=== PATIENT | male | born 1960 | race Caucasian/White ===

== ENCOUNTER 2024-05-01 15:00 | Outpatient (RCR) | payer OTHER, SELFPAY ==
[2024-01-04 09:44] VITALS: PULSE 76
== END 2024-05-01 23:59 | disposition home or self-care (01) ==
LOC: ANHCPREHAB 15:00
PROVIDERS: PCP Internal Medicine; Visit Provider Internal Medicine
DX: J44.9 Chronic obstructive pulmonary disease, unspecified (principal)
CPT/HCPCS: 94625

== ENCOUNTER 2024-08-04 08:39 | Outpatient (CLI) | payer OTHER, SELFPAY ==
--- OUTSIDE RECORDS SUMMARY | 2024-08-04 08:43 | XMS_ITS | Referral Summary ---
Author Organization [facility] Medical Office Building [address] Address [address] [place] [address] Care Team Providers Care Group Leader [employer] Name Role Phone Be Sheehan MD Primary Care Provider + [phone] Kwame Quezada MD Unavailable [phone] Encounters Date Type Department Care Team Description 07/18/2024 Orders Only [facility] Medical Group Pulmonology [address] [place] [address] [place] [phone] Kwame Quezada MD 07/17/2024 Results Follow-Up [facility] Pulmonology [address] [place] [address] [place] [phone] Kwame Quezada MD 07/14/2024 6:47 PM CDT - 07/14/2024 10:05 PM CDT Emergency [facility] Emergency Department [address] [place] [address] COVID (Primary Dx) Discharge Disposition: Discharge to home or self care 07/03/2024 Results Follow-Up [facility] Pulmonology [address] [place] [address] [place] [phone] Kwame Quezada MD 06/29/2024 6:08 PM LITERACY EDUCATION PROFESSOR - 06/29/2024 9:03 PM LITERACY EDUCATION PROFESSOR Emergency [facility] Emergency Department [address] [place] [address] COPD with acute exacerbation (HCC) (Primary Dx); Laryngitis, acute; Acute bronchospasm; Influenza A Discharge Disposition: Discharge to home or self care 06/20/2024 Results Follow-Up [facility] Medical [facility] at [address] [place] [phone] Hue Posey NP 06/19/2024 2:55 PM LITERACY EDUCATION PROFESSOR - 06/19/2024 11:59 PM LITERACY EDUCATION PROFESSOR Hospital Encounter [address] [address] Cough, unspecified type Discharge Disposition: Discharge to home or self care 06/19/2024 2:45 PM LITERACY EDUCATION PROFESSOR Office Visit [facility] Medical [facility] at [address] [place] [phone] Lauren Preciado NP Cough, unspecified type (Primary Dx) 06/19/2024 Telephone [facility] Pulmonology [address] [place] [address] [place] [phone] Kwame Quezada MD Cough (Left voicemail, Cough) 06/15/2024 Telephone [facility] Pulmonology [address] [place] [address] [place] [phone] Kwame Quezada MD Diagnostic Testing (Left voicemail, Testing) 06/09/2024 Orders Only [facility] Pulmonology [address] [place] [address] [place] [phone] ProviderHari MD from Last 3 Months Allergies No known active allergies Medications omeprazole (PriLOSEC) 40 mg capsule Take 1 capsule (40 mg total) by mouth daily Active loratadine/pseudo ephedrine (CLARITIN-D 12 HOUR ORAL) Take by mouth Activ e coenzyme Q10 200 mg capsule Take 1 capsule (200 mg total) by mouth daily Active TURMERIC ORAL Take 1 tablet by mouth daily Active rizatriptan HEALTH AND WELLNESS COORDINATOR (MAXALT-HEALTH AND WELLNESS COORDINATOR) 10 mg disintegrating tabletIndications :Migraine Take 1 tablet (10 mg total) by mouth every 2 (two) hours as needed for migraine May repeat in 2 hours if unresolved. Do not exceed 30 mg in 24 hours. 9 tablet 3 024 Active rosuvastatin (CRESTOR) 10 mg tablet Take 1 tablet (10 mg total) by mouth daily 90 tablet 3 024 Active aspirin 81 mg enteric coated tablet Take 1 tablet (81 mg total) by mouth daily 30 tablet 11 024 Active metoprolol tartrate (LOPRESSOR) 25 mg immediate release tablet Take 0.5 tablets (12.5 mg total) by mouth 2 (two) times a day 90 tablet 3 024 2024 Active fluticasone propionate (FLONASE) 50 mcg/actuation nasal sprayIndications: LLOYD (dyspnea on exertion) Administer 2 sprays into each nostril daily 16 g Active tamsulosin (FLOMAX) 0.4 mg extended release capsule TAKE 1 CAPSULE ORAL ROUTE ONCE DAILY 1/2 HOUR FOLLOWING THE SAME MEAL EACH DAY Active oxyCODONE-acetami nophen (PERCOCET) 5-325 mg per tablet Active ondansetron (ZOFRAN) 4 mg tablet Active albuterol HFA (PROVENTIL HFA,VENTOLIN HFA,PROAIR HFA) 90 mcg/actuation inhaler Inhale 2 puffs every 6 (six) hours as needed for shortness of breath or wheezing for wheezing 8.5 g 11 024 Active fluticasone-umecl idin-vilanter (Trelegy Ellipta) 100-62.5-25 mcg inhaler Inhale 1 puff daily 3 each 11 Active topiramate (TOPAMAX) 50 mg tabletIndications :Chronic migraine w/o aura w/o status migrainosus, not intractable TAKE 1 TABLET BY MOUTH TWICE DAILY 60 tablet 5 024 Active guaiFENesin ER (MUCINEX) 600 mg 12 hr tablet Take 1 tablet (600 mg total) by mouth 2 (two) times a day for 5 days 10 tablet 025 Active azithromycin (Zithromax Z-Derick) 250 mg tabletIndications :COPD with acute exacerbation (HCC) Take 1 tablet (250 mg total) by mouth daily Take first 2 tablets together, then 1 every day until finished. 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),Acute bronchospasm Take 20 mL (400 mg total) by mouth 4 (four) times a day as needed for cough or congestion Collaborating physician Inder Ba MD 240 mL 1 025 Active losartan-hydroCHL OROthiazide (HYZAAR) 100-12.5 mg per tabletIndications :Primary hypertension Take 1 tablet by mouth daily 90 tablet 1 025 Active losartan-hydroCHL OROthiazide (HYZAAR) 100-12.5 mg per tabletIndications :Primary hypertension Take 1 tablet by mouth daily 30 tablet 2 024 2024 Discontinued predniSONE (DELTASONE) 50 mg tablet Take 1 tablet (50 mg) by mouth daily for 5 days 5 tablet 025 2024 nirmatrelvir 300 mg-ritonavir 100 mg (PAXLOVID 300mg-100 mg) tablets,dose pack tablets in a dose pack Take 300 mg nirmatrelvir (2 x 150 mg tablets) with 100 mg ritonavir (1 x 100 mg tablet) with all three tablets taken together by mouth twice daily for 5 days. 30 tablet 025 2024 Active Problems Problem Noted Date Diagnosed Date Laryngitis, acute 06/29/2024 Acute bronchospasm 06/29/2024 Influenza A 06/29/2024 Right renal stone 02/15/2024 Assessment & Plan (02/15/2024 5:30 PM CDT): Will a [facility] Emergency room because of renal stone CT scan confirmed renal stone right kidney this was 1st episode. Comfortable at this time he is on tamsulosin no further treatment indicated. Patient had no obstruction/meaning hydronephrosis laboratory studies were cleaned with respect to any renal failure. CT scan did pickle processor a lung nodule patient is under care of his physical therapy nurse for management of this. Left shoulder pain 02/15/2024 Assessment & Plan (02/15/2024 5:33 PM CDT): Bones. The left she will remind him a what he had several years ago with the right shoulder. He has pain on range of motion laterally he has full range of motion.. This time I am referring this patient to Orthopedics for further management of this progressive symptoms that have been going on for several months.. No lab or x- ray on today's visit. Pulmonary nodule, right 02/15/2024 Assessment & Plan (02/15/2024 5:40 PM CDT): Incidental pulmonary nodule found while being evaluated for abdominal and chest pain secondary to renal stone. This diagnosis being managed by his physical therapy nurse Angina pectoris, unspecified 08/12/2023 Abnormal stress test 07/13/2023 LLOYD (dyspnea on exertion) 06/21/2023 Assessment & Plan (06/21/2023 3:58 PM LITERACY EDUCATION PROFESSOR): LLOYD with chest tightness in setting of 63 y/o male with htn and hyperlipidemia thus needs stress test to rule out cad. Rising PSA level 06/21/2023 Assessment & Plan (06/21/2023 6:18 PM LITERACY EDUCATION PROFESSOR): Check PSA before next visit. Palpitations 06/21/2023 Assessment & Plan (06/21/2023 6:18 PM LITERACY EDUCATION PROFESSOR): CardioNet monitor and call back for results. Chronic migraine w/o aura w/ o status migrainosus, not intractable 12/14/2022 Overview (02/02/2023): Sumatriptan produced elevated blood pressures in the 180s over 109 range Assessment & Plan (02/15/2024 5:18 PM CDT): Patient advised me that Topamax has been very very effective in controlling his migraine rarely has used sumatriptan. Assessment & Plan (06/21/2023 6:18 PM LITERACY EDUCATION PROFESSOR): Follow-up with his neurologist as they direct. Assessment & Plan (03/03/2023 7:48 PM CDT): Trial of sumatriptan and call back if no improvement or develops side effects. Assessment & Plan (02/02/2023 9:09 AM CDT): Discontinue sumatriptan for ineffectiveness and causing elevated blood pressures. Trial Nurtec ODT and samples provided. Call back for prescription. Discussed potential side effects and call back if any develop. May use prophylactically as well if needed. Neurological referral. CT head unremarkable. Chronic pain of both knees 06/19/2022 Assessment & Plan (07/06/2022 2:44 PM LITERACY EDUCATION PROFESSOR): X-rays of both knees followed by Fionan gel as needed and physical therapy evaluation. Call back for orthopedic referral if no improvement Umbilical hernia 12/26/2021 Assessment & Plan (02/24/2022 9:05 AM CDT): Continue light duty for another 4 weeks. Patient can wear binder for comfort. Continue bowel regimen to avoid straining. Okay to return to work if has light duty. Patient will call with any further questions or concerns. Assessment & Plan (01/15/2022 9:02 AM CDT): We will set the patient up for umbilical hernia repair with mesh implantation. We have discussed postoperative restrictions. He is in understanding of the plan. Until surgery continue abdominal binder for comfort. Continue bowel regimen to avoid straining. We have gone over signs and symptoms of incarceration and he will call sooner if anything changes Assessment & Plan (01/11/2022 11:10 PM CDT): Recommend observation and surgical referral if enlarges or becomes symptomatic. Warning signs of strangulation discussed which would prompt an ER visit Type 2 diabetes mellitus with hyperlipidemia 04/2021 Assessment & Plan (02/15/2024 5:31 PM CDT): Patient's HgbA1c was 6.1 lipid profile was very good he understands at this point he needs no medications Lifestyle changes.. Assessment & Plan (12/20/2023 5:16 PM CDT): New diagnosis for him. Reduce sugars and carbs and increase exercise for weight loss. Check A1c and microalbumin creatinine ratio before next visit. A1c currently well controlled. LDL above goal and will increase rosuvastatin next visit if needed. Yearly diabetic eye exam recommended. Patient informs me today that he will be establishing with a new primary care physician closer to home. He knows he is due for physical June 2024. Assessment & Plan (06/21/2023 6:18 PM LITERACY EDUCATION PROFESSOR): Patient should reduce sugar and carbs, increase exercise, maintain proper body weight, and will check an A1c once or twice yearly. Assessment & Plan (03/03/2023 7:47 PM CDT): Patient should reduce sugar and carbs, increase exercise, maintain proper body weight, and will check an A1c once or twice yearly. Assessment & Plan (07/06/2022 2:43 PM LITERACY EDUCATION PROFESSOR): Patient should reduce sugar and carbs, increase exercise, maintain proper body weight, and will check an A1c once or twice yearly. Assessment & Plan (01/01/2022 7:35 AM CDT): Patient should reduce sugar and carbs, increase exercise, maintain proper body weight, and will check an A1c once or twice yearly. Assessment & Plan (06/17/2021 3:35 PM LITERACY EDUCATION PROFESSOR): Proximity to diabetes discussed. Decrease sugars increase exercise and repeat A1c and fasting blood sugar before next visit. Assessment & Plan (11/11/2020 3:13 PM CDT): Patient should reduce sugar and carbs, increase exercise, maintain proper body weight, and will check an A1c once or twice yearly. GERD (gastroesophageal reflux disease) Beck esophagus 05/31/2020 Overview (12/16/2021): Due for EGD 10/25, dr Peters Assessment & Plan (12/20/2023 5:13 PM CDT): Continue PPI and repeat EGD October 2024 Assessment & Plan (06/21/2023 6:15 PM LITERACY EDUCATION PROFESSOR): Continue PPI and repeat EGD October 2024 Assessment & Plan (07/06/2022 2:44 PM LITERACY EDUCATION PROFESSOR): Continue PPI and repeat EGD October 2024. Assessment & Plan (01/01/2022 7:36 AM CDT): Continue PPI and due for EGD October 2024. Assessment & Plan (06/17/2021 3:34 PM LITERACY EDUCATION PROFESSOR): Continue his PPI and follow-up for EGD as directed. Assessment & Plan (11/11/2020 3:13 PM CDT): Continues omeprazole and check magnesium level before next visit. EGD due May 2021. 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 Currently due May 2021. He should call if he does not have complete symptom resolution of acid reflux. COPD with acute exacerbation 05/31/2020 Assessment & Plan (12/20/2023 5:13 PM CDT): Continue Trelegy daily and use albuterol as needed and follow up with his physical therapy nurse as they direct. Assessment & Plan (06/21/2023 6:15 PM LITERACY EDUCATION PROFESSOR): Continue Trelegy and use albuterol as needed. Assessment & Plan (03/16/2023 10:52 AM LITERACY EDUCATION PROFESSOR): Much better today and should continue Trelegy indefinitely and use albuterol as needed and slowly reduce its usage. Finish prednisone taper and call back if symptoms would redevelop. Assessment & Plan (03/08/2023 5:18 PM LITERACY EDUCATION PROFESSOR): Change Symbicort to Trelegy. Azithromycin and prednisone taper. Albuterol 6 times daily. Chest x-ray today and call back for results. ER if develops more shortness of breath. Repeat visit in 1 week or sooner if needed. Seamus Lynne for coughing. Hoarseness likely result of his coughing and laryngeal irritation. Vocal Rest recommended. Assessment & Plan (07/06/2022 2:43 PM LITERACY EDUCATION PROFESSOR): Stable on Symbicort and use albuterol as needed. Assessment & Plan (01/01/2022 7:35 AM CDT): Stable on Symbicort and use albuterol as needed. Assessment & Plan (06/17/2021 3:34 PM LITERACY EDUCATION PROFESSOR): Well controlled on Symbicort and use albuterol as needed. Assessment & Plan (11/11/2020 3:13 PM CDT): Continue his Symbicort twice daily and use albuterol as needed. Assessment & Plan (07/23/2020 8:38 PM CDT): Well controlled on his Symbicort and use albuterol p.r.n. Assessment & Plan (05/31/2020 5:59 PM LITERACY EDUCATION PROFESSOR): Stable and should Continue Symbicort. Change to Trelegy if needed in future. ED (erectile dysfunction) 05/31/2020 Assessment & Plan (05/31/2020 6:00 PM LITERACY EDUCATION PROFESSOR): Stable. Check testosterone and prolactin level before next visit. Trial of Viagra and side effects discussed. Healthcare maintenance 05/31/2020 Assessment & Plan (06/21/2023 6:17 PM LITERACY EDUCATION PROFESSOR): Flu shot each January. Tetanus booster due May 31, 2030. Consider new COVID booster, RSV, Shingrix, flu shot. Colonoscopy due January 2025. PSA yearly. Assessment & Plan (07/06/2022 2:43 PM LITERACY EDUCATION PROFESSOR): Flu shot each January. Tetanus booster every 10 years. COVID booster completed. Shingrix recommended. PSA yearly. Colonoscopy due 2024. Will see him back in 6 months with lab sooner if needed. Assessment & Plan (06/17/2021 3:35 PM LITERACY EDUCATION PROFESSOR): Flu shot each January. Tetanus booster every 10 years. COVID vaccine completed. Shingrix recommended. PSA yearly. Colonoscopy due 2024. Will see him back in 6 months with lab sooner if needed. Assessment & Plan (05/31/2020 6:01 PM LITERACY EDUCATION PROFESSOR): Flu Shot each January. Tetanus booster updated. Pneumovax updated. Shingrix recommended. COVID vaccine when available. PSA yearly. Colonoscopy due January 2025. Will see him back in 1 month for lab and blood pressure evaluation sooner if needed. Allergic rhinitis 09/20/2019 Assessment & Plan (05/31/2020 6:01 PM LITERACY EDUCATION PROFESSOR): Pedro deleon Hypertension 09/20/2019 Assessment & Plan (02/15/2024 5:20 PM CDT): Hypertension at goal 112/70 patient remains on Hyzaar 100/12.5 mg once daily Assessment & Plan (12/20/2023 5:13 PM CDT): Blood pressure well controlled on losartan, hydrochlorothiazide, metoprolol Assessment & Plan (06/21/2023 6:15 PM LITERACY EDUCATION PROFESSOR): Blood pressure well controlled on losartan hydrochlorothiazide. Assessment & Plan (05/06/2023 2:27 PM LITERACY EDUCATION PROFESSOR): Recommend DASH diet, heart-healthy lifestyle, exercise. Discussed the risks of hypertension. Assessment & Plan (03/08/2023 5:17 PM LITERACY EDUCATION PROFESSOR): Let us discontinue the lisinopril and case it is contributing to his coughing. Replace with losartan. Continue Hydrochlorothiazide Assessment & Plan (03/03/2023 7:47 PM CDT): Blood pressure well controlled on lisinopril hydrochlorothiazide Assessment & Plan (02/16/2023 1:00 PM CDT): Recommend DASH diet, heart-healthy lifestyle, exercise. Discussed the risks of hypertension. Assessment & Plan (02/02/2023 9:08 AM CDT): Blood pressure appears very well controlled at home on lisinopril hydrochlorothiazide and seems to have elevated after developing the headache and using sumatriptan. Assessment & Plan (07/06/2022 2:44 PM LITERACY EDUCATION PROFESSOR): Blood pressure well controlled on lisinopril hydrochlorothiazide. Assessment & Plan (01/11/2022 11:10 PM CDT): Well controlled on the current regimen. Avoidance of salt, proper body weight, and routine exercise recommended. Assessment & Plan (01/01/2022 7:36 AM CDT): Well controlled on the current regimen. Avoidance of salt, proper body weight, and routine exercise recommended. Assessment & Plan (06/17/2021 3:34 PM LITERACY EDUCATION PROFESSOR): Well controlled on the current regimen. Avoidance of salt, proper body weight, and routine exercise recommended. Assessment & Plan (11/11/2020 3:13 PM CDT): Well controlled on the current regimen. Avoidance of salt, proper body weight, and routine exercise recommended. Assessment & Plan (07/23/2020 8:38 PM CDT): Well controlled on the current regimen. Avoidance of salt, proper body weight, and routine exercise recommended. Assessment & Plan (05/31/2020 5:59 PM LITERACY EDUCATION PROFESSOR): Not well controlled and will change to lisinopril hydrochlorothiazide 02/11.5 1 tablet daily and warned of side effects. Check metabolic panel couple weeks and see him back in the office in 4 weeks. Call back if blood pressures do not improve. Hypercholesterolemia 09/20/2019 Assessment & Plan (12/20/2023 5:13 PM CDT): LDL above goal on his rosuvastatin but admits to missing doses prior to last lab work. Increase exercise and work on diet and take rosuvastatin on regular basis. If LDL not better by next visit, recommend increasing rosuvastatin dosage. Assessment & Plan (06/21/2023 6:18 PM LITERACY EDUCATION PROFESSOR): Well controlled on current therapy and will check a lipid panel and LFTs in 6 months. Assessment & Plan (03/03/2023 7:47 PM CDT): Well controlled on current therapy and will check a lipid panel and LFTs in 6 months. Assessment & Plan (07/06/2022 2:43 PM LITERACY EDUCATION PROFESSOR): Well controlled on current therapy and will check a lipid panel and LFTs in 6 months. Assessment & Plan (01/01/2022 7:35 AM CDT): Well controlled on current therapy and will check a lipid panel and LFTs in 6 months. Assessment & Plan (06/17/2021 3:34 PM LITERACY EDUCATION PROFESSOR): Well controlled on current therapy and will check a lipid panel and LFTs in 6 months. Assessment & Plan (11/11/2020 3:13 PM CDT): Well controlled on current therapy and will check a lipid panel and LFTs in 6 months. Assessment & Plan (07/23/2020 8:37 PM CDT): Well controlled on current therapy and will check a lipid panel and LFTs in 4 months. Assessment & Plan (05/31/2020 5:58 PM LITERACY EDUCATION PROFESSOR): Stable and should continue rosuvastatin and check lipids and LFTs before next visit. Resolved Problems Problem Noted Date Diagnosed Date Resolved Date Verruca 03/03/2023 03/03/2023 Assessment & Plan (03/03/2023 7:48 PM CDT): Dermatology referral Sinusitis, acute 02/11/2023 02/16/2023 Assessment & Plan (02/11/2023 2:14 PM CDT): Trial of amoxicillin and call back if no improvement Otitis media 02/11/2023 02/16/2023 Assessment & Plan (02/11/2023 2:14 PM CDT): Trial of amoxicillin along with Ciprodex eardrops and call back if no improvement Skin lesion 12/26/2021 02/16/2023 Assessment & Plan (02/24/2022 9:05 AM CDT): Pathology reviewed as just a simple skin tag nothing concerning. Assessment & Plan (01/15/2022 9:02 AM CDT): We will set the patient up for excision of the skin lesion at the time of the umbilical hernia repair. Assessment & Plan (01/11/2022 11:10 PM CDT): Dermatology referral. Abnormal blood sugar 07/23/2020 022 Assessment & Plan (07/23/2020 8:39 PM CDT): Importance of low carb diet increased exercise discussed. Check fasting blood sugar and A1c before next visit. Immunizations Immunization Administration Dates Next Due Influenza, Trivalent, Preser vative Free, Intramuscular 02/15/2024 Influenza, Unspecified 03/16/2023(Deferr ed: Patient Refused),02/16/2023(Deferred: Patient Refused),12/01/2022(Deferred: Patient Refused),01/31/2021(Deferred: Patient Refused),07/05/2020(Deferred: Patient Refused),05/31/2020(Deferred: Patient Refused) Pfizer SARS-CoV-2 Monovalent Vaccination (12+ Yrs) PURPLE 04/21/2021,08/27/2020,07/30/2020 Pneumococcal Polysaccharide PPV23 05/31/2020 Tdap 05/31/2020 Social History Tobacco Use Types Packs/Day Years Used Date Smoking Tobacco: Former Cigarettes 0.5 12 1 5 - 1986 Tobacco Cessation:Counseling Given: Not Answered Comments:Quit in 1987, Smoked for 13 plus years 1/2 PPD Alcohol Use Standard Drinks/Week Comments Yes 0 (1 standard drink = 0.6 oz pur e alcohol) AUDIT-C Answer Date Recorded Q1: How often do you have a drink containing alcohol? 4 or more times a week 06/21/2023 Q2: How many drinks containi ng alcohol do you have on a typical day when you are drinking? 1 or 2 Q3: How often do you have si x or more drinks on one occasion? Never 06/21/2023 PHQ-2 Answer Date Recorded PHQ-2 Total Score (If total score is 3 or more points, staff should administer the PHQ-9) 0 02/15/2024 Personal Safety Answer Date Recorded Have you ever been in or are you currently in a harmful physical or emotional relationship or is someone making you feel afraid or unsafe? Denies 07/14/2024 Sex and Gender Information Value Date Recorded Sex Assigned at Not on file Legal Sex Male 1:11 PM LITERACY EDUCATION PROFESSOR Gender Identity Not on file Sexual Orientation Not on file Last Filed Vital Signs Vital Sign Reading Time Taken Comments Blood Pressure 124/96 07/14/2024 9:15 PM CDT Pulse 91 07/14/2024 10:00 PM CDT Temperature 36.1 C (97 F) 07/14/2024 2:40 PM CDT Respiratory Rate 19 07/14/2024 10:00 PM CDT Oxygen Saturation 94% 07/14/2024 10:00 PM CDT Inhaled Oxygen Concentration - - Weight 72.6 kg (160 lb) 07/14/2024 2:40 PM CDT Height 170.2 cm (5' 7 ) 06/29/2024 5:52 PM LITERACY EDUCATION PROFESSOR Body Mass Index 25.06 06/29/2024 5:52 PM LITERACY EDUCATION PROFESSOR Plan of Treatment Not on file Medical Devices Implanted Type Area Maori Physiotherapist Device Identifier Shelf Expiration Date Model / Serial / Lot [employer]/C R Bard Ventralex St Sepra Sorbaflex 1.7in [facility] Bioresorbable [id number] - [id number] Implanted:Qty: 1 on 02/13/2022 by Tyshawn Yousif MD at [facility] N/A: Abdomen [employer]/C R Bard [id number] 01/28/2023 [id number] / / [id number] Procedures Procedure Name Priority Date/Time Associated Diagnosis Comments TROPONIN T HIGH-SENSITIVITY 6-HOUR Timed 07/14/2024 8:[address] CHEST WO CONTRAST ED 07/14/2024 7:54 PM CDT INFLUENZA A/B, RSV, AND COVID-19 PCR STAT 07/14/2024 7:12 PM CDT XR CHEST PA LATERAL 2 VIEWS ED 07/14/2024 2:57 PM CDT D-DIMER, QUANTITATIVE STAT 07/14/2024 2:56 PM CDT PRO B-TYPE NATRIURETIC PEPTIDE STAT 07/14/2024 2:56 PM CDT EGFR STAT 07/14/2024 2:56 PM CDT DIFFERENTIAL AUTO STAT 07/14/2024 2:5 6 PM CDT TROPONIN T HIGH-SENSITIVITY SERIES (BASELINE, 2HR, 4HR, 6HR) STAT 07/14/2024 2:56 PM CDT CBC WITH AUTO DIFFERENTIAL STAT 07/14/2024 2:56 PM CDT COMPREHENSIVE METABOLIC PANEL STAT 07/14/2024 2:56 PM CDT ECG 12-LEAD STAT 07/14/2024 2:51 PM CDT EGFR STAT 06/29/2024 7:01 PM LITERACY EDUCATION PROFESSOR DIFFERENTIAL AUTO STAT 06/29/2024 7:0 1 PM LITERACY EDUCATION PROFESSOR TROPONIN T HIGH-SENSITIVITY SERIES (BASELINE, 2HR, 4HR, 6HR) STAT 06/29/2024 7:01 PM LITERACY EDUCATION PROFESSOR COMPREHENSIVE METABOLIC PANEL STAT 06/29/2024 7:01 PM LITERACY EDUCATION PROFESSOR PRO B-TYPE NATRIURETIC PEPTIDE STAT 06/29/2024 7:01 PM LITERACY EDUCATION PROFESSOR CBC WITH AUTO DIFFERENTIAL STAT 06/29/2024 7:01 PM LITERACY EDUCATION PROFESSOR INFLUENZA A/B, RSV, AND COVID-19 PCR STAT 06/29/2024 7:01 PM LITERACY EDUCATION PROFESSOR XR CHEST 1 VIEW ED 06/29/2024 6:46 PM LITERACY EDUCATION PROFESSOR ECG 12-LEAD STAT 06/29/2024 6:44 PM LITERACY EDUCATION PROFESSOR INFLUENZA A/B, RSV, AND COVID-19 PCR Routine 06/19/2024 2:55 PM LITERACY EDUCATION PROFESSOR Cough, unspecified type STRESS TEST, PULMONARY Routine 10:53 AM LITERACY EDUCATION PROFESSOR HEMOGLOBIN A1C Routine 11/30/2023 6:52 AM CDT Benign essential hypertension Hypercholesterolemi a IFG (impaired fasting glucose) LIPID PANEL Routine 11/30/2023 6:52 AM CDT Benign essential hypertension Hypercholesterolemi a IFG (impaired fasting glucose) PSA DIAGNOSTIC Routine 11/30/2023 6:52 AM CDT Benign essential hypertension Hypercholesterolemi a IFG (impaired fasting glucose) Rising PSA level COLONOSCOPY Routine 02/19/2020 from Last 3 Months or Most Recently Relevant to Health Maintenance Results * Troponin T high-sensitivity 6-hour (07/14/2024 8:48 PM CDT) Trop T hs <6 <=22 ng/L Comment: Interpretive Data For further hscTnT resources including the diagnostic algorithm and an aid in interpretation, copy and paste this link: https://nrl.testcatalog.org/show/hsTrop Current Interpretive Data last revised 2020. Trop T hs delta 0 ng/L [facility] ([place]) Trop T hs interp Insignificant [facility] ([place]) Blood 07/14/2024 8:48 PM CDT 07/14/2024 8:55 PM CDT Inder Ba MD LAB BLOOD ORDERABLES Final Result [facility] ([place]) 1 [facility] [place] [address] * CT Chest WO Contrast (07/14/2024 7:54 PM CDT) Anatomical Region Laterality Modality Body N/A Computed Tomogra phy 07/14/2024 8:34 PM CDT Narrative 07/14/2024 8:37 PM CDT EXAM DESCRIPTION: CT CHEST WO CONTRAST REASON FOR STUDY: Respiratory illness, nondiagnostic xray Pt states he has had the flu for about a month and not getting better. Productive cough with shortness of breath since 06/16/24 TECHNIQUE: CT scan of the chest performed without intravenous contrast using helical scanning technique. Reconstructed coronal and sagittal MPR images reviewed. All images stored on PACS. Automated exposure control was used as a dose optimization technique for this examination. COMPARISON: 02/21/2024 FINDINGS: LUNGS: Mild linear atelectasis in the lung bases. Trachea and major airways patent. HEART/MEDIASTINUM/DASIA: Heart size normal. Minimal coronary artery calcification. No enlarged lymph node. Thoracic inlet unremarkable. UPPER ABDOMEN: Unremarkable. MUSCULOSKELETAL: Mild multilevel disc disease. CHEST WALL: Unremarkable. IMPRESSION: No pneumonia or other acute pulmonary process identified. THIS IS AN ELECTRONICALLY VERIFIED FINAL REPORT 07/14/2024 8:37 PM - Electronically signed by Vasile Easley M.D. AR: DINORA Report ID: [id number] Reading Location: [id number] Procedure Note Vasile Easley MD - 07/14/2024 EXAM DESCRIPTION: CT CHEST WO CONTRAST REASON FOR STUDY: Respiratory illness, nondiagnostic xray Pt states he has had the flu for about a month and not getting better. Productive cough with shortness of breath since 06/16/24 TECHNIQUE: CT scan of the chest performed without intravenous contrastusing helical scanning technique. Reconstructed coronal and sagittal MPR images reviewed. All images stored on PACS. Automated exposure control was usedas a dose optimization technique for this examination. COMPARISON: 02/21/2024 FINDINGS: LUNGS: Mild linear atelectasis in the lung bases. Trachea and majorairways patent. HEART/MEDIASTINUM/DASIA: Heart size normal. Minimal coronary artery calcification. No enlarged lymph node. Thoracic inlet unremarkable. UPPER ABDOMEN: Unremarkable. MUSCULOSKELETAL: Mild multilevel disc disease. CHEST WALL: Unremarkable. IMPRESSION: No pneumonia or other acute pulmonary process identified. THIS IS AN ELECTRONICALLY VERIFIED FINAL REPORT 07/14/2024 8:37 PM - Electronically signed by Vasile Easley M.D. AR: DINORA Report ID: [id number] Reading Location: [place] [address] PROCEDURES Final R esult * (ABNORMAL) Influenza A/B, RSV, and COVID-19 PCR Nasopharyngeal (07/14/2024 7:12 PM CDT) COVID-19 RNA Positive(A) Negative Influenza A RNA Negative Negative [facility] ([place] Influenza B RNA Negative Negative [facility] ([place]) RSV RNA Negative Negative [facility] ([place]) Comment: Interpretive data: Testing performed by [facility]. This test is performed using the NoWait Xpert Xpress CoV-2/Flu/RSV plus assay. This is a multiplex, real- time reverse transcriptase PCR assay intended for the qualitative detection of nucleic acid from SARS-CoV-2, influenza A, influenza B, and respiratory syncytial virus. This assay has been cleared by the [place] Food and Drug administration. The performance characteristics have been verified by the [facility]. Results must be considered in the clinical context, and a negative result does not rule out infection. Interpretive Data last revised 2023 Nasopharyngeal 07/14/2024 7: 12 PM CDT 07/14/2024 7:15 PM CDT Narrative [facility] ([place]) - 07/14/2024 8:09 PM CDT Is the Patient experiencing symptoms consistent with COVID?->Yes us Arianne THOMAS LAB MICROBIOLOGY - GENERA L ORDERABLES Final Result [facility] ([place]) 1 [facility] Department [place] [address] * XR Chest PA Lateral 2 Views (07/14/2024 2:57 PM CDT) Anatomical Region Laterality Modality Body, Chest N/A Computed Radiogr aphy 07/14/2024 3:24 PM CDT Narrative 07/14/2024 3:25 PM CDT EXAM DESCRIPTION: XR CHEST PA LATERAL 2 VIEWS REASON FOR STUDY: Shortness of breath c/o productive cough, trouble breathing, fatigue for a few weeks. Tested positive for flu A a 06/29. No fevers. TECHNIQUE: Frontal and lateral radiographic view(s) of the chest. COMPARISON: 06/29/2024. FINDINGS: LUNGS: No focal opacity, pleural effusion, or pneumothorax. Lungs are hyperexpanded with flattened diaphragms. HEART/MEDIASTINUM: Cardiac silhouette normal in size. Mediastinal and hilar contours appear normal. LINES/TUBES: None. BONES: No acute osseous abnormality. IMPRESSION: No acute cardiopulmonary abnormality. THIS IS AN ELECTRONICALLY VERIFIED FINAL REPORT 07/14/2024 3:25 PM - Electronically signed by Klaus Carson M.D. CH: DIPAK Report ID: [id number] Reading Location: [id number] Procedure Note Klaus Carson Jr., MD - 07/14/2024 EXAM DESCRIPTION: XR CHEST PA LATERAL 2 VIEWS REASON FOR STUDY: Shortness of breath c/o productive cough, trouble breathing, fatigue for a few weeks. Tested positive for flu A a 06/29. No fevers. TECHNIQUE: Frontal and lateral radiographic view(s) of the chest. COMPARISON: 06/29/2024. FINDINGS: LUNGS: No focal opacity, pleural effusion, or pneumothorax. Lungs are hyperexpanded with flattened diaphragms. HEART/MEDIASTINUM: Cardiac silhouette normal in size. Mediastinal andhilar contours appear normal. LINES/TUBES: None. BONES: No acute osseous abnormality. IMPRESSION: No acute cardiopulmonary abnormality. THIS IS AN ELECTRONICALLY VERIFIED FINAL REPORT 07/14/2024 3:25 PM - Electronically signed by Klaus Carson M.D. CH: Report ID: [id number] Reading Location: [place] [address] Inder Ba MD IMG XR PROCEDURES Final Res ult * Troponin T high-sensitivity series (baseline, 2hr, 4hr, 6hr) (07/14/2024 2:56 PM CDT) Trop T hs <6 <=22 ng/L Comment: Interpretive Data For further hscTnT resources including the diagnostic algorithm and an aid in interpretation, copy and paste this link: https://nrl.testcatalog.org/show/hsTrop Current Interpretive Data last revised 2020. Blood 07/14/2024 2:56 PM CDT 07/14/2024 2:59 PM CDT Inder Ba MD LAB BLOOD ORDERABLES Final Result [facility] [place] 1 [facility] Department [place] [address] * eGFR (07/14/2024 2:56 PM CDT) eGFR 79 >=60 mL/min/1. 73 m2 Comment: Interpretive Data Reference Interval Normal >/= 90 mL/min/1.73m2 Mildly decreased* 60 - 89 mL/min/1.73m2 Mildly to moderately decreased 45 - 59 mL/min/1.73m2 Moderately to severely decreased 30 - 44 mL/min/1.73m2 Severely decreased 15 - 29 mL/min/1.73m2 Kidney Failure < 15 mL/min/1.73m2 *Relative to young adult level Estimated glomerular filtration rate is determined by the 2020 CKD-EPI equation recommended by the National Kidney Foundation (A Unifying Approach to GFR Estimation: Recommendations of the NKF-ASK Task Force on Reassessing the Inclusion of Race in Diagnosing Kidney Disease, JASN 2020). The CKD-EPI equation should not be used for patients with unstable renal function and has not been validated in children and those over 70. Current interpretive data was last reviewed 2021. Blood 07/14/2024 2:56 PM CDT 07/14/2024 2:59 PM CDT Inder Ba MD LAB BLOOD ORDERABLES Final Result [facility] ([place] 1 [facility] Department [place] [address] * Differential, auto (07/14/2024 2:56 PM CDT) Neutrophil abs 2.7 1.5 - 6.5 K/cumm Imm gran abs 0.0 0.0 - 0.1 K/cumm [facility] ([place]) Lymphocyte abs 1.6 0.8 - 3.3 K/cumm [facility] ([place]) Monocyte abs 0.4 0.2 - 0.8 K/cumm [facility] ([place]) Eosinophil abs 0.1 0.0 - 0.5 K/cumm [facility] ([place]) Basophil abs 0.0 0.0 - 0.1 K/cumm [facility] ([place]) Neutrophil pct 54.7 % [facility] ([place]) Comment: Interpretive Data Percent cell count reference ranges are not reported, since discordance with absolute values may lead to misinterpretation of CBC data. Current Interpretive Data was last revised on 2017. Imm gran pct 0.8 % [facility] ([place]) Comment: Interpretive Data Percent cell count reference ranges are not reported, since discordance with absolute values may lead to misinterpretation of CBC data. Current Interpretive Data was last revised on 2017. Lymphocyte pct 33.7 % [facility] ([place]) Comment: Interpretive Data Percent cell count reference ranges are not reported, since discordance with absolute values may lead to misinterpretation of CBC data. Current Interpretive Data was last revised on 2017. Monocyte pct 8.4 % [facility] ([place]) Comment: Interpretive Data Percent cell count reference ranges are not reported, since discordance with absolute values may lead to misinterpretation of CBC data. Current Interpretive Data was last revised on 2017. Eosinophil pct 1.8 % [facility] ([place]) Comment: Interpretive Data Percent cell count reference ranges are not reported, since discordance with absolute values may lead to misinterpretation of CBC data. Current Interpretive Data was last revised on 2017. Basophil pct 0.6 % [facility] ([place]) Comment: Interpretive Data Percent cell count reference ranges are not reported, since discordance with absolute values may lead to misinterpretation of CBC data. Current Interpretive Data was last revised on 2017. Blood 07/14/2024 2:56 PM CDT 07/14/2024 2:59 PM CDT Inder Ba MD LAB BLOOD ORDERABLES Final Result [facility] ([place]) 1 [facility] Department [place] [address] * Pro B-type natriuretic peptide (07/14/2024 2:56 PM CDT) NT-proBNP <36 <=300 pg/mL Comment: Interpretive Comments: A. Dyspnea in Acute Care Setting All Ages: < 300 pg/ml, acute heart failure unlikely. < 50 yrs: 300 - 450 pg/ml, further investigation warranted. > 450 pg/ml, acute heart failure likely. 50 - 74 yrs: 300 - 900 pg/ml, further investigation warranted. > 900 pg/ml, acute heart failure likely . > or = 75 yrs: 450 - 1800 pg/ml, further investigation warranted. > 1800 pg/ml, acute heart failure likely. B. Non-acute Setting < 75 yrs < 125 pg/ml, rules out heart failure. > or = 125 pg/ml, further investigation warranted. > or = 75 yrs < 450 pg/ml, rules out heart failure. > or = 450 pg/ml, further investigation warranted. - Knowledge of each individual patient's NT-proBNP range may be more useful than using similar cut-points for every patient. Please note that marked elevations in NT-proBNP levels may be observed in state other than Left Ventricular Congestive Failure, including: acute coronary syndromes, right heart strain/failure (including pulmonary embolism and cor pulmonale), critical illness, renal failure, as well as advanced age. - References: 1. Thomas GONZALES et.al. Eur Heart J. 2006:27:330-337. 2. David RW, Bonita JUAN. J. AM Kathy Cardiol: Cardiovasc Imag. 2009;2: 216- 225. Interpretive Data Last Revised Date: 2017. Blood 07/14/2024 2:56 PM CDT 07/14/2024 7:25 PM CDT Arianne THOMAS LAB BLOOD ORDERABLES Araceli camp Result [facility] ([place]) 1 [facility] Department of Laboratories [place], [place] [id number] * CBC with auto differential (07/14/2024 2:56 PM CDT) WBC 4.9 3.8 - 9.9 K/cumm Hgb 15.1 13.0 - 17.5 g/dL [facility] ([place]) Hct 42.4 38.9 - 50.3 % [facility] ([place]) Plt 185 150 - 400 K/cumm [facility] ([place]) MPV 10.1 9.1 - 12.3 fL [facility] RBC 4.88 4.30 - 5.80 M/cumm [facility] ([place]) MCV 86.9 81.3 - 96.4 fL [facility] ([place]) MCH 30.9 27.1 - 33.3 pg [facility] ([place]) MCHC 35.6 32.3 - 35.7 g/dL [facility] ([place]) RDW CV 12.5 11.1 - 14.9 % [facility] ([place]) RDW SD 39.4 35.7 - 48.1 fL [facility] ([place]) NRBC abs 0.00 0.00 - 0.01 K/cumm [facility] ([place]) Blood 07/14/2024 2:56 PM CDT 07/14/2024 2:59 PM CDT us Inder Ba MD LAB BLOOD ORDERABLES Final Result Performing Organization Address [facility] Co de Phone Number [facility] ([place]) 1 [facility] Department [place] [address] * D-dimer, quantitative (07/14/2024 2:56 PM CDT) D-Dimer <215 <=499 ng/mL FEU [facility] ([place]) Comment: Interpretive data FDA approved the D-dimer, in conjunction with a low or moderate pretest probability score, to exclude venous thromboembolic events (VTE) (PE and DVT) in outpatients when the D-dimer result is < 500 ng/ml FEU. Evidence supports using an age-adjusted D-dimer cut-off for outpatients older than 50 (age x 10) to improve specificity without sacrificing sensitivity. Example: age 68, VTE cut-off 680 ng/ml FEU. References; Scharis HT et al. Brit Med J. 2013;346:f2492. Brittany et al. Annals Int Med. 2015;163:701-11. Current interpretive data was last revised on 2019. Blood 07/14/2024 2:56 PM CDT 07/14/2024 7:26 PM CDT us Arianne THOMAS LAB BLOOD ORDERABLES Araceli l Result Performing Organization Address [facility] Co de Phone Number [facility] ([place]) 1 [facility] Department [place] [address] * (ABNORMAL) Comprehensive metabolic panel (07/14/2024 2:56 PM CDT) Sodium 136 135 - 145 mmol/L Potassium, pl 3.4 3.3 - 4.9 mmol/L [facility] ([place]) Chloride 104 97 - 110 mmol/L [facility] ([place]) CO2 21(L) 22 - 32 mmol/L [facility] ([place]) Anion gap 11 2 - 15 mmol/L [facility] ([place]) BUN 14 6 - 25 mg/dL [facility] ([place]) Creatinine 1.05 0.80 - 1.30 mg/dL [facility] ([place]) Glucose 168 70 - 199 mg/dL [facility] ([place]) Comment: Interpretive Data Fasting glucose >/= 126 mg/dl is diagnostic for diabetes. Fasting is defined as no caloric intake for at least 8 hours. Fasting glucose between 100 mg/dl to 125 mg/dl is diagnostic of prediabetes. In a patient with classic symptoms of hyperglycemia or hyperglycemic crisis, a random glucose >/= 200 mg/dl is diagnostic for diabetes. In the absence of unequivocal hyperglycemia, results should be confirmed by repeat testing. The classification and Diagnosis of Diabetes Diabetes Care 2021; 46: S19-S40. Current interpretive data was last revised 2022. Calcium 9.2 8.5 - 10.3 mg/dL [facility] ([place]) Bilirubin, total 0.4 0.1 - 1.2 mg/dL [facility] ([place]) Protein, pl 6.0(L) 6.5 - 8.5 g/dL [facility] ([place]) Albumin 4.1 3.5 - 5.0 g/dL [facility] ([place]) Alk phos 96 40 - 130 Units/L [facility] ([place]) ALT 32 7 - 55 Units/L [facility] ([place]) AST 16 10 - 50 Units/L [facility] ([place]) Blood 07/14/2024 2:56 PM CDT 07/14/2024 2:59 PM CDT Inder Ba MD LAB BLOOD ORDERABLES Final Result [facility] ([place] 1 [facility] [place] [employer] [place] [address] * ECG 12 lead (07/14/2024 2:51 PM CDT) 07/14/2024 2:51 PM CDT Narrative [facility] - 07/14/2024 4:32 PM CDT Vent Rate: 60 bpm RR Interval: 998 msec [place] Interval: 0 msec QRS Duration: 102 msec QT Interval: 388 msec QTC Interval: 388 msec P-R-T [place]: [id number] - 35 - 70 degrees IMPRESSION: Normal sinus rhythm with PACs ABNORMAL RHYTHM ECG NO CHANGE FROM PREVIOUS TRACING NOTED Electronically Signed By: Mohan Melgar MD Inder Ba MD ECG ORDERABLES Final Resul t Performing Organization Address [facility] Co de Phone Number [facility] * Troponin T high-sensitivity series (baseline, 2hr, 4hr, 6hr) (06/29/2024 7:01 PM LITERACY EDUCATION PROFESSOR) Pathologist [facility] Trop T hs 7 <=22 ng/L Comment: Interpretive Data For further hscTnT resources including the diagnostic algorithm and an aid in interpretation, copy and paste this link: https://nrl.testcatalog.org/show/hsTrop Current Interpretive Data last revised 2020. Blood 06/29/2024 7:01 PM LITERACY EDUCATION PROFESSOR 06/29/2024 7:05 PM LITERACY EDUCATION PROFESSOR Carmelo THOMAS LAB BLOOD ORDERABLES Final R esult Performing Organization Address [facility] Co de Phone Number [facility] W[facility] ([place]) 1 [facility] Department [place] [employer] [place] [address] * (ABNORMAL) Influenza A/B, RSV, and COVID-19 PCR Nasopharyngeal (06/29/2024 7:01 PM LITERACY EDUCATION PROFESSOR) COVID-19 RNA Negative Negative Influenza A RNA Positive(A) Negative [facility] ([place]) Influenza B RNA Negative Negative [facility] ([place]) RSV RNA Negative Negative [facility] ([place]) Comment: Interpretive data: Testing performed by [facility]. This test is performed using the NoWait Xpert Xpress CoV-2/Flu/RSV plus assay. This is a multiplex, real- time reverse transcriptase PCR assay intended for the qualitative detection of nucleic acid from SARS-CoV-2, influenza A, influenza B, and respiratory syncytial virus. This assay has been cleared by the [place] Food and Drug administration. The performance characteristics have been verified by the [facility]. Results must be considered in the clinical context, and a negative result does not rule out infection. Interpretive Data last revised 2023 Nasopharyngeal 06/29/2024 7: 01 PM LITERACY EDUCATION PROFESSOR 06/29/2024 7:05 PM LITERACY EDUCATION PROFESSOR Narrative [facility] ([place]) - 06/29/2024 7:50 PM LITERACY EDUCATION PROFESSOR Is the Patient experiencing symptoms consistent with COVID?->Yes us Carmelo THOMAS LAB MICROBIOLOGY - GENERAL O RDERABLES Final Result [facility] ([place]) 1 [facility] Department [place] [address] * eGFR (06/29/2024 7:01 PM LITERACY EDUCATION PROFESSOR) eGFR 80 >=60 mL/min/1. 73 m2 Comment: Interpretive Data Reference Interval Normal >/= 90 mL/min/1.73m2 Mildly decreased* 60 - 89 mL/min/1.73m2 Mildly to moderately decreased 45 - 59 mL/min/1.73m2 Moderately to severely decreased 30 - 44 mL/min/1.73m2 Severely decreased 15 - 29 mL/min/1.73m2 Kidney Failure < 15 mL/min/1.73m2 *Relative to young adult level Estimated glomerular filtration rate is determined by the 2020 CKD-EPI equation recommended by the National Kidney Foundation (A Unifying Approach to GFR Estimation: Recommendations of the NKF-ASK Task Force on Reassessing the Inclusion of Race in Diagnosing Kidney Disease, JASN 2021). The CKD-EPI equation should not be used for patients with unstable renal function and has not been validated in children and those over 70. Current interpretive data was last reviewed 2021. Blood 06/29/2024 7:01 PM LITERACY EDUCATION PROFESSOR 06/29/2024 7:05 PM LITERACY EDUCATION PROFESSOR us Carmelo THOMAS LAB BLOOD ORDERABLES Final R esult [facility] ([place] 1 [facility] Department [place] [address] * Differential, auto (06/29/2024 7:01 PM LITERACY EDUCATION PROFESSOR) Neutrophil abs 4.1 1.5 - 6.5 K/cumm Imm gran abs 0.1 0.0 - 0.1 K/cumm [facility] ([place]) Lymphocyte abs 1.5 0.8 - 3.3 K/cumm [facility] ([place]) Monocyte abs 0.6 0.2 - 0.8 K/cumm [facility] ([place]) Eosinophil abs 0.1 0.0 - 0.5 K/cumm [facility] ([place]) Basophil abs 0.0 0.0 - 0.1 K/cumm [facility] ([place]) Neutrophil pct 64.1 % [facility] ([place]) Comment: Interpretive Data Percent cell count reference ranges are not reported, since discordance with absolute values may lead to misinterpretation of CBC data. Current Interpretive Data was last revised on 2017. Imm gran pct 2.0 % [facility] ([place]) Comment: Interpretive Data Percent cell count reference ranges are not reported, since discordance with absolute values may lead to misinterpretation of CBC data. Current Interpretive Data was last revised on 2017. Lymphocyte pct 22.9 % [facility] ([place]) Comment: Interpretive Data Percent cell count reference ranges are not reported, since discordance with absolute values may lead to misinterpretation of CBC data. Current Interpretive Data was last revised on 2017. Monocyte pct 8.7 % [facility] ([place]) Comment: Interpretive Data Percent cell count reference ranges are not reported, since discordance with absolute values may lead to misinterpretation of CBC data. Current Interpretive Data was last revised on 2017. Eosinophil pct 1.7 % [facility] ([place]) Comment: Interpretive Data Percent cell count reference ranges are not reported, since discordance with absolute values may lead to misinterpretation of CBC data. Current Interpretive Data was last revised on 2017. Basophil pct 0.6 % [facility] ([place]) Comment: Interpretive Data Percent cell count reference ranges are not reported, since discordance with absolute values may lead to misinterpretation of CBC data. Current Interpretive Data was last revised on 2017. Blood 06/29/2024 7:01 PM LITERACY EDUCATION PROFESSOR 06/29/2024 7:05 PM LITERACY EDUCATION PROFESSOR us Carmelo THOMAS LAB BLOOD ORDERABLES Final R esult [facility] ([place]) 1 [facility] [place] [address] * Pro B-type natriuretic peptide (06/29/2024 7:01 PM LITERACY EDUCATION PROFESSOR) NT-proBNP <36 <=300 pg/mL Comment: Interpretive Comments: A. Dyspnea in Acute Care Setting All Ages: < 300 pg/ml, acute heart failure unlikely. < 50 yrs: 300 - 450 pg/ml, further investigation warranted. > 450 pg/ml, acute heart failure likely. 50 - 74 yrs: 300 - 900 pg/ml, further investigation warranted. > 900 pg/ml, acute heart failure likely . > or = 75 yrs: 450 - 1800 pg/ml, further investigation warranted. > 1800 pg/ml, acute heart failure likely. B. Non-acute Setting < 75 yrs < 125 pg/ml, rules out heart failure. > or = 125 pg/ml, further investigation warranted. > or = 75 yrs < 450 pg/ml, rules out heart failure. > or = 450 pg/ml, further investigation warranted. - Knowledge of each individual patient's NT-proBNP range may be more useful than using similar cut-points for every patient. Please note that marked elevations in NT-proBNP levels may be observed in state other than Left Ventricular Congestive Failure, including: acute coronary syndromes, right heart strain/failure (including pulmonary embolism and cor pulmonale), critical illness, renal failure, as well as advanced age. - References: 1. Thomas GONZALES et.al. Eur Heart J. 2006:27:330-337. 2. David RW, Bonita JUAN. J. AM Kathy Cardiol: Cardiovasc Imag. 2009;2: 216- 225. Interpretive Data Last Revised Date: 2017. Blood 06/29/2024 7:01 PM LITERACY EDUCATION PROFESSOR 06/29/2024 7:05 PM LITERACY EDUCATION PROFESSOR Carmelo THOMAS LAB BLOOD ORDERABLES Final R esult [facility] ([place]) 1 [facility] Department [place] [address] * CBC with auto differential (06/29/2024 7:01 PM LITERACY EDUCATION PROFESSOR) WBC 6.5 3.8 - 9.9 K/cumm Hgb 14.6 13.0 - 17.5 g/dL [facility] ([place]) Hct 40.9 38.9 - 50.3 % [facility]) Plt 175 150 - 400 K/cumm [facility] ([place]) MPV 10.0 9.1 - 12.3 fL [facility] ([place]) RBC 4.76 4.30 - 5.80 M/cumm [facility] ([place]) MCV 85.9 81.3 - 96.4 fL [facility] ([place]) MCH 30.7 27.1 - 33.3 pg [facility] ([place]) MCHC 35.7 32.3 - 35.7 g/dL [facility] ([place]) RDW CV 12.5 11.1 - 14.9 % [facility] ([place]) RDW SD 39.4 35.7 - 48.1 fL [facility] ([place]) NRBC abs 0.00 0.00 - 0.01 K/cumm [facility] ([place]) Blood 06/29/2024 7:01 PM LITERACY EDUCATION PROFESSOR 06/29/2024 7:05 PM LITERACY EDUCATION PROFESSOR us Carmelo THOMAS LAB BLOOD ORDERABLES Final R esult [facility] ([place]) 1 [facility] Department [place] [address] * (ABNORMAL) Comprehensive metabolic panel (06/29/2024 7:01 PM LITERACY EDUCATION PROFESSOR) Sodium 135 135 - 145 mmol/L Potassium, pl 3.5 3.3 - 4.9 mmol/L [facility] ([place]) Chloride 102 97 - 110 mmol/L [facility] ([place] CO2 22 22 - 32 mmol/L [facility] ([place]) Anion gap 10 2 - 15 mmol/L [facility] ([place]) BUN 18 6 - 25 mg/dL [facility] ([place]) Creatinine 1.04 0.80 - 1.30 mg/dL [facility] ([place]) Glucose 116 70 - 199 mg/dL [facility] ([place]) Comment: Interpretive Data Fasting glucose >/= 126 mg/dl is diagnostic for diabetes. Fasting is defined as no caloric intake for at least 8 hours. Fasting glucose between 100 mg/dl to 125 mg/dl is diagnostic of prediabetes. In a patient with classic symptoms of hyperglycemia or hyperglycemic crisis, a random glucose >/= 200 mg/dl is diagnostic for diabetes. In the absence of unequivocal hyperglycemia, results should be confirmed by repeat testing. The classification and Diagnosis of Diabetes Diabetes Care 2021; 46: S19-S40. Current interpretive data was last revised 2022. Calcium 9.3 8.5 - 10.3 mg/dL [facility] ([place]) Bilirubin, total 0.5 0.1 - 1.2 mg/dL [facility] ([place]) Protein, pl 6.1(L) 6.5 - 8.5 g/dL [facility] ([place]) Albumin 4.0 3.5 - 5.0 g/dL [facility] ([place]) Alk phos 79 40 - 130 Units/L [facility] ([place]) ALT 37 7 - 55 Units/L [facility] ([place]) AST 24 10 - 50 Units/L [facility] ([place]) Comment: Hemolysis present. Results may be affected. Slightly Hemolyzed Specimen Blood 06/29/2024 7:01 PM LITERACY EDUCATION PROFESSOR 06/29/2024 7:05 PM LITERACY EDUCATION PROFESSOR us Carmelo THOMAS LAB BLOOD ORDERABLES Final R esult [facility] ([place]) 1 [facility] Department [place] [address] * XR Chest 1 Vw (06/29/2024 6:46 PM LITERACY EDUCATION PROFESSOR) Anatomical Region Laterality Modality Body, Chest N/A Computed Radiogr aphy 06/29/2024 7:21 PM LITERACY EDUCATION PROFESSOR Narrative 06/29/2024 7:22 PM LITERACY EDUCATION PROFESSOR EXAM DESCRIPTION: XR CHEST 1 VIEW REASON FOR STUDY: Cough for 1 week. TECHNIQUE: Frontal radiographic view of the chest COMPARISON: Chest radiograph 03/08/2023, CT chest 02/21/2024 FINDINGS: LUNGS/PLEURAE: Discoid atelectasis or scarring in the lung bases. No large pleural effusion. There is no pneumothorax. HEART/MEDIASTINUM: Heart size is normal. Normal mediastinal and hilar contours. HARDWARE/LINES/TUBES: None. BONES: Sclerotic lesion projecting over the right scapula is unchanged and likely a bone island. IMPRESSION: Discoid atelectasis or scarring in the lung bases. THIS IS AN ELECTRONICALLY VERIFIED FINAL REPORT 06/29/2024 7:22 PM - Electronically signed by Jony Hale M.D. LB: NABILA Report ID: [id number] Reading Location: [id number] Procedure Note Jony Hale MD - 06/29/2024 EXAM DESCRIPTION: XR CHEST 1 VIEW REASON FOR STUDY: Cough for 1 week. TECHNIQUE: Frontal radiographic view of the chest COMPARISON: Chest radiograph 03/08/2023, CT chest 02/21/2024 FINDINGS: LUNGS/PLEURAE: Discoid atelectasis or scarring in the lung bases. Nolarge pleural effusion. There is no pneumothorax. HEART/MEDIASTINUM: Heart size is normal. Normal mediastinal and hilar contours. HARDWARE/LINES/TUBES: None. BONES: Sclerotic lesion projecting over the right scapula is unchangedand likely a bone island. IMPRESSION: Discoid atelectasis or scarring in the lung bases. THIS IS AN ELECTRONICALLY VERIFIED FINAL REPORT 06/29/2024 7:22 PM - Electronically signed by Jony Hale M.D. LB: LB Report ID: [id number] Reading Location: [id number] Tico Trinh MD IMG XR PROCEDURES Final Result * ECG 12 lead (06/29/2024 6:44 PM LITERACY EDUCATION PROFESSOR) 06/29/2024 6:44 PM LITERACY EDUCATION PROFESSOR Narrative [facility] - 06/30/2024 6:37 AM LITERACY EDUCATION PROFESSOR Vent Rate: 66 bpm RR Interval: 905 msec [place] Interval: 131 msec QRS Duration: 93 msec QT Interval: 388 msec QTC Interval: 401 msec P-R-T [place]: 63 - 35 - 60 degrees IMPRESSION: SINUS RHYTHM WITH OCCASIONAL SUPRAVENTRICULAR PREMATURE COMPLEXES BORDERLINE ECG Compared to prior EKG, PACs are new Electronically Signed By: Mohan Melgar MD Carmelo THOMAS ECG ORDERABLES Final Result [facility] * (ABNORMAL) Influenza A/B, RSV, and COVID-19 PCR Nasopharyngeal (06/19/2024 2:55 PM LITERACY EDUCATION PROFESSOR) Pathologist [facility] COVID-19 RNA Negative Negative Influenza A RNA Positive(A) Negative [facility] Influenza B RNA Negative Negative [facility] RSV RNA Negative Negative [facility] Comment: Interpretive data: Testing performed by [facility]. This test is performed using the NoWait Xpert Xpress CoV-2/Flu/RSV plus assay. This is a multiplex, real-time reverse transcriptase PCR assay intended for the qualitative detection of nucleic acid from SARS-CoV-2, influenza A, influenza B, and respiratory syncytial virus. This assay has been cleared by the [place] Food and Drug administration. The performance characteristics have been verified by the [facility]. Results must be considered in the clinical context, and a negative result does not rule out infection. Interpretive Data last revised 2023 Nasopharyngeal 06/19/2024 2: 55 PM LITERACY EDUCATION PROFESSOR 06/19/2024 9:26 PM LITERACY EDUCATION PROFESSOR Narrative [facility] - 06/19/2024 10:35 PM LITERACY EDUCATION PROFESSOR Is the Patient experiencing symptoms consistent with COVID?->Yes Lauren Preciado NP LAB MICROBIOLOGY - [facility] ORDERABLES Final Result [facility] [address] [place] [address] CH * Stress test, pulmonary (06/05/2024 10:53 AM LITERACY EDUCATION PROFESSOR) Anatomical Region Laterality Modality Other Historical Provider PFT ORDERABLES Final Res ult * PSA diagnostic (11/30/2023 6:52 AM CDT) PSA-Total 0.40 <=5.40 ng/mL Comment: Interpretive Data AGE SEX REFERENCE INTERVAL 0 minutes-150 years Female None 0 minutes-49 years Male None 50-59 years Male 0-3.90 60-69 years Male 0-5.40 70-79 years Male 0-6.20 80-150 years Male 0-6.20 The [employer]erg[employer] PSA Total assay procedure was used. Results from different manufacturers or methods may not be comparable. Serial testing should be performed using the same method. Current interpretive data last revised 21. Blood 11/30/2023 6:52 AM CDT 11/30/2023 8:33 AM CDT Narrative [facility] ([place]) - 11/30/2023 9:09 AM CDT fasting Gordon Melton MD LAB BLOOD ORDERABLES Final R esult Performing Organization Address [facility]/ZIP Co de Phone Number [facility] ([place]) 1 [facility] [place] [address] * (ABNORMAL) Hemoglobin A1c (11/30/2023 6:52 AM CDT) Hgb A1C 6.2(H) 4.0 - 5.6 % Estimated Average Glucose 131 mg/dL [facility] ([place]) Comment: The ADA recommends reporting an estimated Average Glucose (eAG) with all Hemoglobin A1c results using the equation derived from a study of 507 normal and diabetic adults. Minority populations were underrepresented and children were not included. (Diabetes Care 31:0050-6105, 2008). The eAG is not equivalent to a fasting glucose. Blood 11/30/2023 6:52 AM CDT 11/30/2023 8:33 AM CDT Narrative [facility] ([place]) - 11/30/2023 8:54 AM CDT fasting us Gordon Melton MD LAB BLOOD ORDERABLES Final R esult Performing Organization Address [facility] Co de Phone Number [facility] ([place]) 1 [facility] [place] [place] [address] * (ABNORMAL) Lipid panel (11/30/2023 6:52 AM CDT) Cholesterol 181 30 - 199 mg/dL Comment: Interpretive Data Ages < or = 19 years Acceptable: <170 mg/dL Borderline high: 170-199 mg/dL High: >or= 200 mg/dL Ages > or = 20 years Desirable: <200 mg/dL Borderline high: 200-239 mg/dL High: >or= 240 mg/dL Literature References: 1. Expert Panel on Integrated Guidelines for Cardiovascular Health and Risk Reduction in Children and Adolescents. Pediatrics 2011;128:S213 2. NCEP Expert Panel. Circulation 2004;110:227 Current Interpretive Data was last revised on 2017. Triglycerides 151(H) <=149 mg/dL [facility] ([place]) Comment: Interpretive Data Ages < or = 9 years Acceptable: <75 mg/dL Borderline high: 75-99 mg/dL High: >or= 100 mg/dL Ages 10 to 20 years Acceptable: <90 mg/dL Borderline high: 90-129 mg/dL High: >or= 130 mg/dL Ages > or = 20 years Desirable: <150 mg/dL Borderline high: 150-199 mg/dL High: 200-499 mg/dL Very high: >or= 499 mg/dL Literature References: 1. Expert Panel on Integrated Guidelines for Cardiovascular Health and Risk Reduction in Children and Adolescents. Pediatrics 2011;128:S213 2. NCEP Expert Panel. Circulation 2004;110:227 Current Interpretive Data was last revised on 2017. HDL 40 >=40 mg/dL [facility] ([place]) Comment: Interpretive Data Ages < or = 19 years Acceptable: >45 mg/dL Borderline low: 40-45 mg/dL Low: <40 mg/dL Ages > or = 20 years Desirable: >or= 60 mg/dL Low: <40 mg/dL Literature References: 1. Expert Panel on Integrated Guidelines for Cardiovascular Health and Risk Reduction in Children and Adolescents. Pediatrics 2011;128:S213 2. NCEP Expert Panel. Circulation 2004;110:227 Current Interpretive Data was last revised on 2017. LDL, calculated 111 <=129 mg/dL [facility] ([place]) Comment: Interpretive Data Ages < or = 19 years Acceptable: <110 mg/dL Borderline high: 110-129 mg/dL High: >or= 130 mg/dL Ages > or = 20 years Optimal: <100 mg/dL Near optimal: 100-129 mg/dL Borderline high: 130-159 mg/dL High: >160 mg/dL Literature References: 1. Expert Panel on Integrated Guidelines for Cardiovascular Health and Risk Reduction in Children and Adolescents. Pediatrics 2011;128:S213 2. NCEP Expert Panel. Circulation 2004;110:227 Current Interpretive Data was last revised on 2017. Non-HDL Cholesterol 141 mg/dL [facility] ([place]) Comment: Interpretive Data Ages < or = 19 years Acceptable: <120 mg/dL Borderline high: 120-144 mg/dL High: >145 mg/dL Ages > or = 20 years When triglycerides are >200 mg/dL, Non-HDL cholesterol is a secondary target of therapy with treatment goals that are 30 mg/dL greater than the LDL cholesterol target. Literature References: 1. Expert Panel on Integrated Guidelines for Cardiovascular Health and Risk Reduction in Children and Adolescents. Pediatrics 2011;128:S213 2. NCEP Expert Panel. Circulation 2004;110:227 Current Interpretive Data was last revised on 2017. Chol/HDL ratio 5 BRADY Tripp [facility] ([place]) Blood 11/30/2023 6:52 AM CDT 11/30/2023 8:33 AM CDT Narrative [facility] ([place]) - 11/30/2023 9:09 AM CDT fasting Gordon Melton MD LAB BLOOD ORDERABLES Final R esult [facility] ([place]) 1 [facility] Department [place] [address] * Colonoscopy (02/19/2020) Anatomical Region Laterality Modality Other Historical Provider ENDOSCOPY PROCEDURES Araceli l Result from Last 3 Months or Most Recently Relevant to Health Maintenance Additional Health Concerns Infection Onset Date Last Indicated COVID: Recovered Comment:Added based on recent COVID infection. 07/24/2024 025 Insurance [facility] CHOICE PLUS Advance Directives For more information, please contact: [phone] Documents on File Type Date Recorded Patient Urologic Surgeon Expl anation ADVANCE DIRECTIVE 07/23/2023 2:01 PM Power of Billiard Table Mechanic-Medical * Full Code (Latest Code Status on File) Date Activated Date Inactivated Comments 07/26/2023 2:10 PM 07/27/2023 11:20 AM Care Teams Group Leader [employer] Testing Relationship Specialty Start Date End Date Be Sheehan MD [address] [place] [id number] PCP - General Internal Medicine 02/14/24 Kwame Quezada MD [address] [place] [id number] Consulting Physician Pulmonary Disease 06/19/24
--- OUTSIDE RECORDS SUMMARY | 2024-08-04 08:43 | XMS_ITS | Encounter Summary ---
Author Organization [facility] Healthcare Address [address] [place] [address] Care Team Providers Care Cotton Ball Machine Tender Name Role Phone Be Sheehan MD Primary Care Provider [phone] Kwame Quezada MD Unavailable [phone] Encounter Details Date Type Department Care Team (Late st Contact Info) Description 07/03/2024 Results Follow-Up [facility] Medical Group Pulmonology [address] [facility] [address] [place] [address] Kwame Quezada MD [address] [facility] [address] [place] [address] Social History Tobacco Use Types Packs/Day Years Used Date Smoking Tobacco: Former Cigarettes 0.5 12 1 975 - 1987 Comments:Quit in 1987, Smoke d for 13 plus years 1/2 PPD Alcohol [...] making you feel afraid or unsafe? Denies 06/29/2024 Sex and Gender Information Value Date Recorded Sex Assigned at Not on file Legal Sex Male 1:11 PM CONSULTANT INTERN Gender Identity Not on file Sexual Orientation Not on file documented as of this encounter Miscellaneous Notes * Result Encounter Note - Kwame Quezada MD - 07/03/2024 8:26 AM CONSULTANT INTERN Patient tested positive for influenza on 06/19 initially. Test can remain positive for several days. ULTANT INTERN documented in this encounter Plan of Treatment Not on file documented as of this encounter Visit Diagnoses Not on filedocumented in this encounter Additional Health Concerns Infection Onset Date Last Indicated Resolved Time Influenza, adult 06/29/2024 06/29/2024 07/06/2024 3:05 AM CONSULTANT INTERN COVID: Suspected 07/14/2024 07/14/2024 07/14/2024 8:09 PM CDT COVID19 07/14/2024 07/14/2024 07/24/2024 3:05 AM CDT COVID: Recovered Comment:Added based on recent COVID infection. 07/24/2024 07/25/2024 documented as of this encounter Care Teams Cotton Ball Machine Tender Relationship Specialty Start Date End Date Be Sheehan MD [address] [place] [address] PCP - General Internal Medicine 02/14/24 Kwame Quezada MD [address] [facility] [address] [facility] [address] [place] [address] Consulting Physician Pulmonary Disease 06/19/24 documented as of this encounter
--- OUTSIDE RECORDS SUMMARY | 2024-08-04 08:43 | XMS_ITS | Clinical Summary ---
Author Organization [facility] Medical Office Building B Address [address] [place] [address] Care Team Providers Care Body Shop Supervisor Name Role Phone Be Sheehan MD Primary Care Provider [phone] Kwame Quezada MD Unavailable [phone] Allergies No known active allergies Medications omeprazole (PriLOSEC) 40 mg capsule Take 1 capsule (40 mg total) by mouth daily Active loratadine/pseudo ephedrine (CLARITIN-D 12 HOUR ORAL) Take by mouth Activ e coenzyme Q10 200 mg capsule Take 1 capsule (200 mg total) by mouth daily Active TURMERIC ORAL Take 1 tablet by mouth daily Active rizatriptan PUBLIC RELATIONS INTERN (MAXALT-PUBLIC RELATIONS INTERN) 10 mg disintegrating tabletIndications :Migraine Take 1 [...] total) by mouth daily 30 tablet 11 Active metoprolol tartrate (LOPRESSOR) 25 mg immediate release tablet Take 0.5 tablets (12.5 mg total) by mouth 2 (two) times a day 90 tablet 3 024 2024 Active fluticasone propionate (FLONASE) 50 mcg/actuation nasal sprayIndications: LLOYD (dyspnea on exertion) Administer 2 sprays into each nostril daily 16 g 11 Active tamsulosin (FLOMAX) 0.4 mg extended release [...] or wheezing for wheezing 8.5 g 11 Active fluticasone-umecl idin-vilanter (Trelegy Ellipta) 100-62.5-25 mcg [...] 025 Active guaiFENesin (ROBITUSSIN) syrup 100 mg/5 mLIndications: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 Comfortable at this time he is on tamsulosin no further treatment indicated. Patient had no obstruction/meaning hydronephrosis laboratory studies were cleaned with respect to any renal failure. 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 Left shoulder pain [...] stone. This diagnosis being managed by his folder stitcher operator Angina pectoris, unspecified 08/12/2023 Abnormal stress test 07/13/2023 LLOYD (dyspnea on exertion) 06/21/2023 Assessment & Plan (06/21/2023 3:58 PM ELECTRIC TRANSFER OPERATOR): LLOYD with chest tightness in setting of 63 y/o male with htn and hyperlipidemia thus needs stress test to rule out cad. Rising PSA level 06/21/2023 Assessment & Plan (06/21/2023 6:18 PM ELECTRIC TRANSFER OPERATOR): Check PSA before next visit. Palpitations 06/21/2023 Assessment & Plan (06/21/2023 6:18 PM ELECTRIC TRANSFER OPERATOR): CardioNet monitor and call back for results. Chronic migraine w/o aura w/ o status migrainosus, not intractable 12/14/2022 Overview (02/02/2023): Sumatriptan produced elevated blood pressures in the 180s over 109 range Assessment & Plan (02/15/2024 5:18 PM CDT): Patient advised me that Topamax has been very very effective in controlling his migraine rarely has used sumatriptan. Assessment & Plan (06/21/2023 6:18 PM ELECTRIC TRANSFER OPERATOR): Follow-up with his neurologist as they direct. [...] 06/19/2022 Assessment & Plan (07/06/2022 2:44 PM ELECTRIC TRANSFER OPERATOR): X-rays of both knees followed by Ger sarah as needed and physical therapy evaluation. Call [...] 2024. Assessment & Plan (06/21/2023 6:18 PM ELECTRIC TRANSFER OPERATOR): Patient should reduce sugar and carbs, increase exercise, maintain proper body weight, and will check an A1c once or twice yearly. Assessment & Plan (03/03/2023 7:47 PM CDT): Patient should reduce sugar and carbs, increase exercise, maintain proper body weight, and will check an A1c once or twice yearly. Assessment & Plan (07/06/2022 2:43 PM ELECTRIC TRANSFER OPERATOR): Patient should reduce sugar and carbs, increase exercise, maintain proper body weight, and will check an A1c once or twice yearly. Assessment & Plan (01/01/2022 7:35 AM CDT): Patient should reduce sugar and carbs, increase exercise, maintain proper body weight, and will check an A1c once or twice yearly. Assessment & Plan (06/17/2021 3:35 PM ELECTRIC TRANSFER OPERATOR): Proximity to diabetes discussed. Decrease sugars increase [...] 2024 Assessment & Plan (06/21/2023 6:15 PM ELECTRIC TRANSFER OPERATOR): Continue PPI and repeat EGD October 2024 Assessment & Plan (07/06/2022 2:44 PM ELECTRIC TRANSFER OPERATOR): Continue PPI and repeat EGD October 2024. Assessment & Plan (01/01/2022 7:36 AM CDT): Continue PPI and due for EGD October 2024. Assessment & Plan (06/17/2021 3:34 PM ELECTRIC TRANSFER OPERATOR): Continue his PPI and follow-up for EGD as directed. Assessment & Plan (11/11/2020 3:13 PM CDT): Continues omeprazole and check magnesium level before next visit. EGD due May 2021. Assessment & Plan (05/31/2020 5:59 PM ELECTRIC TRANSFER OPERATOR): Stable and should continue his omeprazole and follow-up with his acoustic warfare analyst for repeat EGD as he directs. Currently due May 2021. He should call if he does not have complete symptom resolution of acid reflux. COPD with acute exacerbation 05/31/2020 Assessment & Plan (12/20/2023 5:13 PM CDT): Continue Trelegy daily and use albuterol as needed and follow up with his folder stitcher operator as they direct. Assessment & Plan (06/21/2023 6:15 PM ELECTRIC TRANSFER OPERATOR): Continue Trelegy and use albuterol as needed. Assessment & Plan (03/16/2023 10:52 AM ELECTRIC TRANSFER OPERATOR): Much better today and should continue Trelegy indefinitely and use albuterol as needed and slowly reduce its usage. Finish prednisone taper and call back if symptoms would redevelop. Assessment & Plan (03/08/2023 5:18 PM ELECTRIC TRANSFER OPERATOR): Change Symbicort to Trelegy. Azithromycin and prednisone taper. Albuterol 6 times daily. Chest x-ray today and call back for results. ER if develops more shortness of breath. Repeat visit in 1 week or sooner if needed. Seamus Lynne for coughing. Hoarseness likely result of his coughing and laryngeal irritation. Vocal Rest recommended. Assessment & Plan (07/06/2022 2:43 PM ELECTRIC TRANSFER OPERATOR): Stable on Symbicort and use albuterol as needed. Assessment & Plan (01/01/2022 7:35 AM CDT): Stable on Symbicort and use albuterol as needed. Assessment & Plan (06/17/2021 3:34 PM ELECTRIC TRANSFER OPERATOR): Well controlled on Symbicort and use albuterol as needed. Assessment & Plan (11/11/2020 3:13 PM CDT): Continue his Symbicort twice daily and use albuterol as needed. Assessment & Plan (07/23/2020 8:38 PM CDT): Well controlled on his Symbicort and use albuterol p.r.n. Assessment & Plan (05/31/2020 5:59 PM ELECTRIC TRANSFER OPERATOR): Stable and should Continue Symbicort. Change to Trelegy if needed in future. ED (erectile dysfunction) 05/31/2020 Assessment & Plan (05/31/2020 6:00 PM ELECTRIC TRANSFER OPERATOR): Stable. Check testosterone and prolactin level before next visit. Trial of Viagra and side effects discussed. Healthcare maintenance 05/31/2020 Assessment & Plan (06/21/2023 6:17 PM ELECTRIC TRANSFER OPERATOR): Flu shot each January. Tetanus booster due May 31, 2030. Consider new COVID booster, RSV, Shingrix, flu shot. Colonoscopy due January 2025. PSA yearly. Assessment & Plan (07/06/2022 2:43 PM ELECTRIC TRANSFER OPERATOR): Flu shot each January. Tetanus booster every 10 years. COVID booster completed. Shingrix recommended. PSA yearly. Colonoscopy due 2024. Will see him back in 6 months with lab sooner if needed. Assessment & Plan (06/17/2021 3:35 PM ELECTRIC TRANSFER OPERATOR): Flu shot each January. Tetanus booster every 10 years. COVID vaccine completed. Shingrix recommended. PSA yearly. Colonoscopy due 2024. Will see him back in 6 months with lab sooner if needed. Assessment & Plan (05/31/2020 6:01 PM ELECTRIC TRANSFER OPERATOR): Flu Shot each January. Tetanus booster updated. Pneumovax updated. Shingrix recommended. COVID vaccine when available. PSA yearly. Colonoscopy due January 2025. Will see him back in 1 month for lab and blood pressure evaluation sooner if needed. Allergic rhinitis 09/20/2019 Assessment & Plan (05/31/2020 6:01 PM ELECTRIC TRANSFER OPERATOR): Pedro p.r.n. Hypertension 09/20/2019 Assessment & Plan (02/15/2024 5:20 PM CDT): Hypertension at goal 112/70 patient remains on Hyzaar 100/12.5 mg once daily Assessment & Plan (12/20/2023 5:13 PM CDT): Blood pressure well controlled on losartan, hydrochlorothiazide, metoprolol Assessment & Plan (06/21/2023 6:15 PM ELECTRIC TRANSFER OPERATOR): Blood pressure well controlled on losartan hydrochlorothiazide. Assessment & Plan (05/06/2023 2:27 PM ELECTRIC TRANSFER OPERATOR): Recommend DASH diet, heart-healthy lifestyle, exercise. Discussed the risks of hypertension. Assessment & Plan (03/08/2023 5:17 PM ELECTRIC TRANSFER OPERATOR): Let us discontinue the lisinopril and case [...] sumatriptan. Assessment & Plan (07/06/2022 2:44 PM ELECTRIC TRANSFER OPERATOR): Blood pressure well controlled on lisinopril hydrochlorothiazide. Assessment & Plan (01/11/2022 11:10 PM CDT): Well controlled on the current regimen. Avoidance of salt, proper body weight, and routine exercise recommended. Assessment & Plan (01/01/2022 7:36 AM CDT): Well controlled on the current regimen. Avoidance of salt, proper body weight, and routine exercise recommended. Assessment & Plan (06/17/2021 3:34 PM ELECTRIC TRANSFER OPERATOR): Well controlled on the current regimen. Avoidance [...] recommended. Assessment & Plan (05/31/2020 5:59 PM ELECTRIC TRANSFER OPERATOR): Not well controlled and will change to [...] dosage. Assessment & Plan (06/21/2023 6:18 PM ELECTRIC TRANSFER OPERATOR): Well controlled on current therapy and will check a lipid panel and LFTs in 6 months. Assessment & Plan (03/03/2023 7:47 PM CDT): Well controlled on current therapy and will check a lipid panel and LFTs in 6 months. Assessment & Plan (07/06/2022 2:43 PM ELECTRIC TRANSFER OPERATOR): Well controlled on current therapy and will check a lipid panel and LFTs in 6 months. Assessment & Plan (01/01/2022 7:35 AM CDT): Well controlled on current therapy and will check a lipid panel and LFTs in 6 months. Assessment & Plan (06/17/2021 3:34 PM ELECTRIC TRANSFER OPERATOR): Well controlled on current therapy and will [...] months. Assessment & Plan (05/31/2020 5:58 PM ELECTRIC TRANSFER OPERATOR): Stable and should continue rosuvastatin and check [...] blood sugar and A1c before next visit. Encounters Date Type Department Care Team Description 07/18/2024 Orders Only [facility] Medical Group Pulmonology [address] [place] [phone] Kwame Quezada MD 07/17/2024 Results Follow-Up [facility] Pulmonology [address] [place] [phone] Kwame Quezada MD 07/14/2024 6:47 PM CDT - 07/14/2024 10:05 PM CDT Emergency [facility] Emergency Department [address] [place] [address] COVID (Primary Dx) Discharge Disposition: Discharge to home or self care 07/03/2024 Results Follow-Up [facility] Pulmonology [address] [place] [phone] Kwame Quezada MD 06/29/2024 6:08 PM ELECTRIC TRANSFER OPERATOR - 06/29/2024 9:03 PM ELECTRIC TRANSFER OPERATOR Emergency [facility] Emergency Department [address] [place] [address] COPD with acute exacerbation (HCC) (Primary Dx); Laryngitis, acute; Acute bronchospasm; Influenza A Discharge Disposition: Discharge to home or self care 06/20/2024 Results Follow-Up [facility] at [address] [place] [address] Hue Posey NP 06/19/2024 2:55 PM ELECTRIC TRANSFER OPERATOR - 06/19/2024 11:59 PM ELECTRIC TRANSFER OPERATOR Hospital Encounter [address] [address] Cough, unspecified type Discharge Disposition: Discharge to home or self care 06/19/2024 2:45 PM ELECTRIC TRANSFER OPERATOR Office Visit [facility] at [address] [place] [phone] Lauren Preciado NP Cough, unspecified type (Primary Dx) 06/19/2024 Telephone [facility] Medical [facility] Pulmonology [facility] [facility] [address] [place] [address] Kwame Quezada MD Cough (Left voicemail, Cough) 06/15/2024 Telephone [facility] Medical [facility] Pulmonology [address] [facility] [address] [place] [address] Kwame Quezada MD Diagnostic Testing (Left voicemail, Testing) 06/09/2024 Orders Only [facility] Medical [facility] Pulmonology [facility] [address] [place] [phone] Provider, MD Hari from Last 3 Months Immunizations Immunization Administration Dates Next Due Influenza, Trivalent, Preser vative Free, Intramuscular 02/15/2024 Influenza, Unspecified 03/16/2023(Deferr ed: Patient Refused),02/16/2023(Deferred: Patient Refused),12/01/2022(Deferred: Patient Refused),01/31/2021(Deferred: Patient Refused),07/05/2020(Deferred: Patient Refused),05/31/2020(Deferred: Patient Refused) Pfizer SARS-CoV-2 Monovalent Vaccination (12+ Yrs) PURPLE 04/21/2021,08/27/2020,07/30/2020 Pneumococcal Polysaccharide PPV23 05/31/2020 Tdap 05/31/2020 Surgical History Surgery Date Site/Laterality Comments SHOULDER SURGERY Right EAR SURGERY Right HERNIA REPAIR SINUS SURGERY EYE SURGERY 10/02/2019 - 10/31/2019 Right EYE SURGERY 09/25/2021 Right Cyst removal CATARACT EXTRACTION 01/06/2022 Right CATARACT EXTRACTION 01/13/2022 Left CARDIAC CATHETERIZATION 08/26/2023 Medical History Medical History Date Comments Hypertension Hypercholesteremia Lung disease GERD (gastroesophageal reflux disease) Family History Medical History Relation Name Comments Cancer Other Heart disease Other Lung disease Other Relation Name Status Comments Father Mother Other Social History Tobacco Use Types Packs/Day Years Used Date Smoking Tobacco: Former Cigarettes 0.5 12 1 975 - 1986 Tobacco Cessation:Counseling Given: Not Answered Comments:Quit in 1987, Smoked for 13 plus years 12 PPD Alcohol Use Standard Drinks/Week Comments Yes [...] on file Legal Sex Male 1:11 PM ELECTRIC TRANSFER OPERATOR Gender Identity Not on file Sexual Orientation Not on file Obstetrics History Last Filed Vital Signs Vital Sign Reading [...] cm (5' 7 ) 06/29/2024 5:52 PM ELECTRIC TRANSFER OPERATOR Body Mass Index 25.06 06/29/2024 5:52 PM ELECTRIC TRANSFER OPERATOR Plan of Treatment Health Maintenance Due Date Last Done Comments Albumin Creatinine Ratio, Urine 1959 Dilated Eye Exam 1959 Hepatitis B Screening 1977 Zoster Vaccine (1 of 2) 2009 Pneumococcal vaccine 65+ (2 of 2 - PCV) 05/31/2021 05/31/2020 Covid-19 Vaccine (2023-2 5 season) 2024 04/21/2021, 08/27/2020, 07/30/2020 Abdominal Aortic Aneurysm (A AA) Screen 02/24/2024 Hemoglobin A1C 06/01/2024 11/30/2023, 11/2023, 12/07/2022, Additional history exists Well Visit 65+ 06/21/2024 06/21/2023, 06/03, 06/17/2021, Additional history exists Fall Risk Assessment 07/25/2024 07/26/2023, 06/21/2023, 05/06/2023, Additional history exists Lipid Panel 11/29/2024 11/30/2023, 11/2023, 12/07/2022, Additional history exists Prostate Cancer Screening-PSA 11/29/2024, 06/09/2023, 06/12/2022, Additional history exists Foot Exam 12/19/2024 12/20/2023 Depression Screening 02/14/2025 02/15/2024, 06/21/2023, 05/06/2023, Additional history exists Colon Cancer Screening-Colonoscopy 02/18/2025 02/19/2020 eGFR 07/14/2025 07/14/2024, 06/04, 11/30/2023, Additional history exists DTaP/Tdap/Td Vaccine (2 - Td or Tdap) 05/31/2030 05/31/2020 Colon Cancer Screening-CT Colonography Discontinued 02/19/2020 Colon Cancer Screening-DNA Stool Discontinued 10/19/20 20 Colon Cancer Screening-FIT Discontinued 02/19/2020 Colon Cancer Screening-Sigmoidoscopy Discontinued 02/19/2020 Influenza Vaccine Completed 02/15/2024 Hepatitis C Screening Discontinued Medical Devices Implanted Type Area Gas Station Manager Device Identifier Shelf Expiration Date Model / Serial / Lot [employer]/C R Bard Ventralex St Sepra Sorbaflex 1.7in [place] Open Bioresorbable [id number] - [id number] Implanted:Qty: 1 on 02/13/2022 by Tyshawn Yousif MD at [facility] N/A: Abdomen [employer]/C R Bard [id number] 01/28/2023 [id number] / / [id number] Procedures Procedure Name Priority Date/Time Associated Diagnosis [...] PM CDT EGFR STAT 06/29/2024 7:01 PM ELECTRIC TRANSFER OPERATOR DIFFERENTIAL AUTO STAT 06/29/2024 7:0 1 PM ELECTRIC TRANSFER OPERATOR TROPONIN T HIGH-SENSITIVITY SERIES (BASELINE, 2HR, 4HR, 6HR) STAT 06/29/2024 7:01 PM ELECTRIC TRANSFER OPERATOR COMPREHENSIVE METABOLIC PANEL STAT 06/29/2024 7:01 PM ELECTRIC TRANSFER OPERATOR PRO B-TYPE NATRIURETIC PEPTIDE STAT 06/29/2024 7:01 PM ELECTRIC TRANSFER OPERATOR CBC WITH AUTO DIFFERENTIAL STAT 06/29/2024 7:01 PM ELECTRIC TRANSFER OPERATOR INFLUENZA A/B, RSV, AND COVID-19 PCR STAT 06/29/2024 7:01 PM ELECTRIC TRANSFER OPERATOR XR CHEST 1 VIEW ED 06/29/2024 6:46 PM ELECTRIC TRANSFER OPERATOR ECG 12-LEAD STAT 06/29/2024 6:44 PM ELECTRIC TRANSFER OPERATOR INFLUENZA A/B, RSV, AND COVID-19 PCR Routine 06/19/2024 2:55 PM ELECTRIC TRANSFER OPERATOR Cough, unspecified type STRESS TEST, PULMONARY Routine 10:53 AM ELECTRIC TRANSFER OPERATOR HEMOGLOBIN A1C Routine 11/30/2023 6:52 AM CDT [...] MD LAB BLOOD ORDERABLES Final Result [facility] ([place]) [address] [facility] Department [place] [address] * CT Chest WO Contrast (07/14/2024 7:54 [...] Vasile Easley M.D. AR: DINORA Report ID: [id number] Reading Location: [id number] Procedure Note Vasile Easley MD - 07/14/2024 [...] Vasile Easley M.D. AR: DINORA Report ID: [id number] Reading Location: [place] [address] PROCEDURES Final R esult * (ABNORMAL) Influenza A/B, RSV, and COVID-19 PCR Nasopharyngeal (07/14/2024 7:12 PM CDT) COVID-19 RNA Positive(A) Negative Influenza A RNA Negative Negative [facility] ([place]) Influenza B RNA Negative Negative [facility] RSV RNA Negative Negative [facility] ([place] Comment: Interpretive data: Testing performed by [facility]. This test is performed using the Terrajou[employer] Xpert Xpress CoV-2/Flu/RSV plus assay. This is a multiplex, real- time reverse transcriptase PCR assay intended for the qualitative detection of nucleic acid from SARS-CoV-2, influenza A, influenza B, and respiratory syncytial virus. This assay has been cleared by the [place] Food and Drug administration. The performance characteristics have been verified by the [facility]. Results must be considered in the clinical context, and a negative result does not rule out infection. Interpretive Data last revised 2023 Nasopharyngeal 07/14/2024 7: 12 PM CDT 07/14/2024 7:15 PM CDT Narrative [facility] ([place]) - 07/14/2024 8:09 PM CDT Is the Patient experiencing symptoms consistent with COVID?->Yes us Arianne THOMAS LAB MICROBIOLOGY - GENERA L ORDERABLES Final Result [facility] ([place]) [address] [facility] Department [place] [address] * XR Chest PA Lateral 2 Views [...] Klaus Carson M.D. CH: DIPAK Report ID: [id number] Reading Location: [id number] Procedure Note Klaus Carson Jr., MD - [...] by Klaus Carson M.D. CH: Report ID: [id number] Reading Location: [id number] Inder Ba MD IMG XR PROCEDURES Final [...] MD LAB BLOOD ORDERABLES Final Result [facility] [place] [address] [facility] Department [place] [address] * eGFR (07/14/2024 2:56 PM CDT) eGFR [...] LAB BLOOD ORDERABLES Final Result [facility] ([place] [address] [facility] Department [place] [address] * Differential, auto (07/14/2024 2:56 PM CDT) [...] revised on 2017. Basophil pct 0.6 % [facility] ([place]) Comment: Interpretive Data Percent cell count reference ranges are not reported, since discordance with absolute values may lead to misinterpretation of CBC data. Current Interpretive Data was last revised on 2017. Blood 07/14/2024 2:56 PM CDT 07/14/2024 2:59 PM CDT us Inder Ba MD LAB BLOOD ORDERABLES Final Result [facility] ([place]) [address] [facility] Department [place] [address] * Pro B-type natriuretic peptide (07/14/2024 2:56 [...] as advanced age. - References: 1. Thomas JL et.al. Eur Heart J. 2006:27:330-337. 2. David RW, Bonita AM. J. AM Kathy Cardiol: Cardiovasc Imag. 2009;2: 216- 225. Interpretive Data Last Revised Date: 2017. Blood 07/14/2024 2:56 PM CDT 07/14/2024 7:25 PM CDT us Arianne THOMAS LAB BLOOD ORDERABLES Araceli camp Result [facility] ([place] [address] [facility] Department [place] [address] * CBC with auto differential (07/14/2024 2:56 PM CDT) Pathologist [facility] WBC 4.9 3.8 - 9.9 K/cumm Hgb 15.1 13.0 - 17.5 g/dL [facility] ([place]) Hct 42.4 38.9 - 50.3 % [facility]) Plt 185 150 - 400 K/cumm [facility]) MPV 10.1 9.1 - 12.3 fL [facility]) RBC 4.88 4.30 - 5.80 M/cumm [facility] MCV 86.9 81.3 - 96.4 fL [facility] MCH 30.9 27.1 - 33.3 pg [facility] MCHC 35.6 32.3 - 35.7 g/dL [facility] RDW CV 12.5 11.1 - 14.9 % [facility] RDW SD 39.4 35.7 - 48.1 fL [facility] NRBC abs 0.00 0.00 - 0.01 K/cumm [facility]) Blood 07/14/2024 2:56 PM CDT 07/14/2024 2:59 PM CDT Inder Ba MD LAB BLOOD ORDERABLES Final Result [facility] ([place]) [address] [facility] Department [place] [address] * D-dimer, quantitative (07/14/2024 2:56 PM CDT) D-Dimer <215 <=499 ng/mL FEU [facility] ([place]) Comment: Interpretive data FDA approved the [...] 68, VTE cut-off 680 ng/ml FEU. References; Schoutpriscila HT et al. Brit Med J. 2013;346:f2492. Brittany et al. Annals Int Med. 2015;163:701-11. Current interpretive data was last revised on 2019. Blood 07/14/2024 2:56 PM CDT 07/14/2024 7:26 PM CDT us Arianne THOMAS LAB BLOOD ORDERABLES Araceli camp Result [facility] ([place]) [address] [facility] Department [place] [address] * (ABNORMAL) Comprehensive metabolic panel (07/14/2024 2:56 [...] classification and Diagnosis of Diabetes Diabetes Care 202; 46: S19-S40. Current interpretive data was last [...] BLOOD ORDERABLES Final Result Performing Organization Address City/[facility] Co de Phone Number [facility] ([place]) [address] [facility] Department [place] [address] * ECG 12 lead (07/14/2024 2:51 PM CDT) 07/14/2024 2:51 PM CDT Narrative [facility] - 07/14/2024 4:32 PM CDT Vent Rate: 60 bpm RR Interval: 998 msec OK Interval: 0 msec QRS Duration: 102 msec QT Interval: 388 msec QTC Interval: 388 msec P-R-T [place]: [id number] - 35 - 70 degrees IMPRESSION: Normal sinus rhythm with PACs ABNORMAL RHYTHM ECG NO CHANGE FROM PREVIOUS TRACING NOTED Electronically Signed By: Mohan Melgar MD Result [facility] Inder Ba MD ECG ORDERABLES Final Resul t Performing Organization Address [facility] [place] de Phone Number [facility] Expect Labs [facility] * Troponin T high-sensitivity series (baseline, 2hr, 4hr, 6hr) (06/29/2024 7:01 PM ELECTRIC TRANSFER OPERATOR) Trop T hs 7 <=22 ng/L Comment: Interpretive Data For further hscTnT resources including the diagnostic algorithm and an aid in interpretation, copy and paste this link: [email or web address].testcatalog.org/show/[email or web address] Current Interpretive Data last revised 2020. Blood 06/29/2024 7:01 PM ELECTRIC TRANSFER OPERATOR 06/29/2024 7:05 PM ELECTRIC TRANSFER OPERATOR Carmelo THOMAS LAB BLOOD ORDERABLES Final R esult Performing Organization Address [facility] [place]/[facility]/ZIP Co de Phone Number [facility] ([place]) [address] [facility] Department [place] [address] * (ABNORMAL) Influenza A/B, RSV, and COVID-19 PCR Nasopharyngeal (06/29/2024 7:01 PM ELECTRIC TRANSFER OPERATOR) [facility] COVID-19 RNA Negative Negative Influenza A RNA Positive(A) Negative [facility] ([place]) Influenza B RNA Negative Negative [facility] ([place]) RSV RNA Negative Negative [facility] ([place]) Comment: Interpretive data: Testing performed by [facility]. This test is performed using the Terrajoule Xpert Xpress CoV-2/Flu/RSV plus assay. This is a multiplex, real- time reverse transcriptase PCR assay intended for the qualitative detection of nucleic acid from SARS-CoV-2, influenza A, influenza B, and respiratory syncytial virus. This assay has been cleared by the [place] Food and Drug administration. The performance characteristics have been verified by the [facility]. Results must be considered in the clinical context, and a negative result does not rule out infection. Interpretive Data last revised 2023 Nasopharyngeal 06/29/2024 7: 01 PM ELECTRIC TRANSFER OPERATOR 06/29/2024 7:05 PM ELECTRIC TRANSFER OPERATOR Narrative [facility] ([place]) - 06/29/2024 7:50 PM ELECTRIC TRANSFER OPERATOR Is the Patient experiencing symptoms consistent with COVID?->Yes Carmelo THOMAS LAB MICROBIOLOGY - GENERAL O RDERABLES Final Result Performing Organization Address [facility]/ZIP Co de Phone Number BELKIS WELCH ([place]) 1 [facility] Department [place] [address] * eGFR (06/29/2024 7:01 PM ELECTRIC TRANSFER OPERATOR) [facility] eGFR 80 >=60 mL/min/1. 73 m2 Comment: [...] last reviewed 2021. Blood 06/29/2024 7:01 PM ELECTRIC TRANSFER OPERATOR 06/29/2024 7:05 PM ELECTRIC TRANSFER OPERATOR us Carmelo THOMAS LAB BLOOD ORDERABLES Final R esult BELKIS WELCH ([place]) 1 [facility] Department [place] [address] * Differential, auto (06/29/2024 7:01 PM ELECTRIC TRANSFER OPERATOR) Neutrophil abs 4.1 1.5 - 6.5 K/cumm [...] revised on 2017. Eosinophil pct 1.7 % [facility] ([place]) Comment: Interpretive Data Percent cell count reference ranges are not reported, since discordance with absolute values may lead to misinterpretation of CBC data. Current Interpretive Data was last revised on 2017. Basophil pct 0.6 % [facility] ([place]) Comment: Interpretive Data Percent cell count reference ranges are not reported, since discordance with absolute values may lead to misinterpretation of CBC data. Current Interpretive Data was last revised on 2017. Blood 06/29/2024 7:01 PM ELECTRIC TRANSFER OPERATOR 06/29/2024 7:05 PM ELECTRIC TRANSFER OPERATOR us Carmelo THOMAS LAB BLOOD ORDERABLES Final R esult BELKIS YURI ([place]) 1 [facility] Department [place] [address] * Pro B-type natriuretic peptide (06/29/2024 7:01 PM ELECTRIC TRANSFER OPERATOR) NT-proBNP <36 <=300 pg/mL Comment: Interpretive Comments: [...] Revised Date: 2017. Blood 06/29/2024 7:01 PM ELECTRIC TRANSFER OPERATOR 06/29/2024 7:05 PM ELECTRIC TRANSFER OPERATOR us Carmelo THOMAS LAB BLOOD ORDERABLES Final R esult [facility] ([place]) 1 [facility] Department [place] [address] * CBC with auto differential (06/29/2024 7:01 PM ELECTRIC TRANSFER OPERATOR) WBC 6.5 3.8 - 9.9 K/cumm Hgb [...] [facility] ([place]) Blood 06/29/2024 7:01 PM ELECTRIC TRANSFER OPERATOR 06/29/2024 7:05 PM ELECTRIC TRANSFER OPERATOR Carmelo THOMAS LAB BLOOD ORDERABLES Final R esult [facility] ([place]) 1 [facility] Department [place] [address] * (ABNORMAL) Comprehensive metabolic panel (06/29/2024 7:01 PM ELECTRIC TRANSFER OPERATOR) Sodium 135 135 - 145 mmol/L Potassium, [...] ([place]) AST 24 10 - 50 Units/L [facility] ([place]) Comment: Hemolysis present. Results may be affected. Slightly Hemolyzed Specimen Blood 06/29/2024 7:01 PM ELECTRIC TRANSFER OPERATOR 06/29/2024 7:05 PM ELECTRIC TRANSFER OPERATOR Carmelo THOMAS LAB BLOOD ORDERABLES Final R esult [facility] ([place]) 1 [facility] Department [place] [address] * XR Chest 1 Vw (06/29/2024 6:46 PM ELECTRIC TRANSFER OPERATOR) Anatomical Region Laterality Modality Body, Chest N/A Computed Radiogr aphy 06/29/2024 7:21 PM ELECTRIC TRANSFER OPERATOR Narrative 06/29/2024 7:22 PM ELECTRIC TRANSFER OPERATOR EXAM DESCRIPTION: XR CHEST 1 VIEW REASON [...] Jony Hale M.D. LB: NABILA Report ID: [id number] Reading Location: [id number] Procedure Note Jony Hale MD - 06/29/2024 [...] Jony Hale M.D. LB: LB Report ID: [id number] Reading Location: [place] [address] Tico Trinh MD IMG XR PROCEDURES Final Result * ECG 12 lead (06/29/2024 6:44 PM ELECTRIC TRANSFER OPERATOR) 06/29/2024 6:44 PM ELECTRIC TRANSFER OPERATOR Narrative [facility] - 06/30/2024 6:37 AM ELECTRIC TRANSFER OPERATOR Vent Rate: 66 bpm RR Interval: 905 msec OK Interval: 131 msec QRS Duration: 93 msec QT Interval: 388 msec QTC Interval: 401 msec P-R-T [place]: 63 - 35 - 60 degrees IMPRESSION: SINUS RHYTHM WITH OCCASIONAL SUPRAVENTRICULAR PREMATURE COMPLEXES BORDERLINE ECG Compared to prior EKG, PACs are new Electronically Signed By: Mohan Melgar MD Carmelo THOMAS ECG ORDERABLES Final Result [facility] * (ABNORMAL) Influenza A/B, RSV, and COVID-19 PCR Nasopharyngeal (06/19/2024 2:55 PM ELECTRIC TRANSFER OPERATOR) COVID-19 RNA Negative Negative Influenza A RNA Positive(A) Negative [facility] Influenza B RNA Negative Negative [facility] RSV RNA Negative Negative [facility] Comment: Interpretive data: Testing performed by [facility]. This test is performed using the Terrajoule Xpert Xpress CoV-2/Flu/RSV plus assay. This is a multiplex, real-time reverse transcriptase PCR assay intended for the qualitative detection of nucleic acid from SARS-CoV-2, influenza A, influenza B, and respiratory syncytial virus. This assay has been cleared by the [place] Food and Drug administration. The performance characteristics have been verified by the [facility]. Results must be considered in the clinical context, and a negative result does not rule out infection. Interpretive Data last revised 2023 Nasopharyngeal 06/19/2024 2: 55 PM ELECTRIC TRANSFER OPERATOR 06/19/2024 9:26 PM ELECTRIC TRANSFER OPERATOR Narrative [facility] - 06/19/2024 10:35 PM ELECTRIC TRANSFER OPERATOR Is the Patient experiencing symptoms consistent with COVID?->Yes Lauren Preciado NP LAB MICROBIOLOGY - GENER AL ORDERABLES Final Result [facility] [address] [address] Department [place] [address] * Stress test, pulmonary (06/05/2024 10:53 AM ELECTRIC TRANSFER OPERATOR) Anatomical Region Laterality Modality Other Historical Provider MD PFT ORDERABLES Final Res ult * PSA diagnostic (11/30/2023 6:52 AM CDT) Pathologist [facility] PSA-Total 0.40 <=5.40 ng/mL Comment: Interpretive Data [...] ORDERABLES Final R esult Performing Organization Address [facility] de Phone Number BELKIS WELCH ([place]) 1 [facility] [place] [address] * (ABNORMAL) Hemoglobin A1c (11/30/2023 6:52 AM CDT) Hgb A1C 6.2(H) 4.0 - 5.6 % Estimated Average Glucose 131 mg/dL LINMICHELLE WELCH ([place]) Comment: The ADA recommends reporting an estimated Average Glucose (eAG) with all Hemoglobin A1c results using the equation derived from a study of 507 normal and diabetic adults. Minority populations were underrepresented and children were not included. (Diabetes Care 31:5877-0689, 2008). The eAG is not equivalent to a fasting glucose. Blood 11/30/2023 6:52 AM CDT 11/30/2023 8:33 AM CDT Narrative BELKIS WELCH ([place]) - 11/30/2023 8:54 AM CDT fasting Gordon Melton MD LAB BLOOD ORDERABLES Final R esult Performing Organization Address [facility] Co de Phone Number BELKIS WELCH ([place]) 1 [facility] [place] [address] * (ABNORMAL) Lipid panel (11/30/2023 6:52 AM [...] Pediatrics 2011;128:S213 2. NCEP Expert Panel. Circulation 2003;110:227 Current Interpretive Data was last revised on [...] Pediatrics 2011;128:S213 2. NCEP Expert Panel. Circulation 2003;110:227 Current Interpretive Data was last revised on [...] Pediatrics 2011;128:S213 2. NCEP Expert Panel. Circulation 2003;110:227 Current Interpretive Data was last revised on [...] Pediatrics 2011;128:S213 2. NCEP Expert Panel. Circulation 2003;110:227 Current Interpretive Data was last revised on [...] revised on 2017. Chol/HDL ratio 5 BRADY WELCH ([place]) Blood 11/30/2023 6:52 AM CDT 11/30/2023 8:33 AM CDT Narrative BELKIS WELCH ([place]) - 11/30/2023 9:09 AM CDT fasting Gordon Melton MD LAB BLOOD ORDERABLES Final R esult BELKIS WELCH ([place]) 1 [facility] Department [place] [address] * Colonoscopy (02/19/2020) Anatomical Region Laterality Modality Other Historical Provider ENDOSCOPY PROCEDURES Araceli l Result from Last 3 Months or Most Recently Relevant to Health Maintenance Additional Health Concerns Infection Onset Date Last Indicated COVID: Recovered Comment:Added based on recent COVID infection. 07/24/2024 025 Insurance [facility] CHOICE PLUS Advance Directives For more information, please contact: [phone] Documents on File Type Date Recorded Patient Finance Assistant Expl anation ADVANCE DIRECTIVE 07/23/2023 2:01 PM Power of Archivist Political History-Medical * Full Code (Latest Code Status on File) Date Activated Date Inactivated Comments 07/26/2023 2:10 PM 07/27/2023 11:20 AM Care Teams Body Shop Supervisor Relationship Specialty Start Date End Date Be Sheehan MD [address] [place] [address] PCP - General Internal Medicine 02/14/24 Kwame Quezada MD [address] [place] [address] Consulting Physician Pulmonary Disease 06/19/24
--- OUTSIDE RECORDS SUMMARY | 2024-08-04 08:43 | XMS_ITS | Encounter Summary ---
Author Organization [facility] Healthcare Address [address] [place] [address] Care Team Providers Care Gang Sawyer Name Role Phone Be Sheehan MD Primary Care Provider [phone] Kwame Quezada MD Unavailable [phone] Encounter Details Date Type Department Care Team (Late st Contact Info) Description 06/20/2024 Results Follow-Up [facility] at [address] [place] [address] Hue Posey, [employer] [address] [facility] [place] [address] Social History Tobacco Use Types Packs/Day Years [...] making you feel afraid or unsafe? Denies 07/26/2023 Sex and Gender Information Value Date Recorded Sex Assigned at Not on file Legal Sex Male 1:11 PM BATT PACKER Gender Identity Not on file Sexual Orientation Not on file documented as of this encounter Miscellaneous Notes * Result Encounter Note - Deandra Gonzalez MA - 06/20/2024 9:43 AM BATT PACKER Patient notified PACKER * Result Encounter Note - Hue Posey NP - 06/20/2024 8:23 AM BATT PACKER Call pt regarding abnormal result- positive Influenza PACKER documented in this encounter Plan of Treatment Not on file documented as of this encounter Visit Diagnoses Not on filedocumented in this encounter Additional Health Concerns Infection Onset Date Last Indicated Resolved Time Influenza, adult 06/19/2024 06/19/2024 06/26/2024 3:07 AM BATT PACKER COVID: Suspected 06/29/2024 06/29/2024 06/29/2024 7:51 PM BATT PACKER Influenza, adult 06/29/2024 06/29/2024 07/06/2024 3:05 AM BATT PACKER COVID: Suspected 07/14/2024 07/14/2024 07/14/2024 8:09 PM CDT COVID19 07/14/2024 07/14/2024 07/24/2024 3:05 AM CDT COVID: Recovered Comment:Added based on recent COVID infection. 07/24/2024 07/25/2024 documented as of this encounter Care Teams Gang Sawyer Relationship Specialty Start Date End Date Be Sheehan MD [address] [place] [address] PCP - General Internal Medicine 02/14/24 Kwame Quezada MD [address] [facility] [address] [address] Consulting Physician Pulmonary Disease 06/19/24 documented as of this encounter
--- OUTSIDE RECORDS SUMMARY | 2024-08-04 08:43 | XMS_ITS | Data Portability ---
Author Organization [facility] Address [address] [place] [address] Care Team Providers Care Teller Supervisor Name Role Phone RADHA SINGH Primary Care Provider Assessment No assessment recorded. Plan of Treatment Reminders Order Date Submit Date Provider Last Modified By Organization Details Last Modified Time Details Appointments None recorded. Lab lipid panel, serum 2018 019 [facility] (Lab), [address] [place], [address], 9 14:53:05 CMP, serum or plasma 2018 019 [facility] (Lab), [address] [place], [address], 9 14:53:05 CBC w/ auto diff 2018 019 [facility] (Lab), [address] [place], [address], 9 14:53:05 PSA, serum or plasma 2018 019 [facility] (Lab), [address] [place], [address], 9 14:53:05 Referral None recorded. Procedures None recorded. Surgeries None recorded. Imaging XR, chest, 2 view 2017 018 [facility], [address] [place], [address], 8 10:05:32 Medication Orders rosuvastat in 10 mg tablet 2018 019 INTERFACE [facility] [id number], [address], [place], [address], 9 14:53:11 Symbicort 160 mcg-4.5 mcg/actuat ion HFA aerosol inhaler 2018 019 INTERFACE [facility] [id number], [address], [place], [address], 9 14:53:09 bisoprolol 2.5 mg-hydroch lorothiazi de 6.25 mg tablet 2018 019 INTERFACE [facility] [id number], [address] , [place], [address], 9 14:53:16 azithromyc in 250 mg tablet 2017 018 [email or web address] [facility][id number], [address] [place], [address], 9 14:36:20 ProAir HFA 90 mcg/actuat ion aerosol inhaler 2017 018 INTERFACE [id number], [address] [place], [address], 8 11:01:15 rosuvastat in 10 mg tablet 2017 018 INTERFACE [facility], [address] [place], [address], 8 11:01:16 bisoprolol 2.5 mg-hydroch lorothiazi de 6.25 mg tablet 2017 018 INTERFACE [facility], [address] [place], [address], 8 11:01:31 rosuvastat in 10 mg tablet 2016 017 INTERFACE [facility], [address] [place], [address], 7 15:58:33 amoxicilli n 875 mg-potassi um clavulanat e 125 mg tablet 2016 017 [email or web address] [id number], [address] [place], [address], 8 12:35:19 Patient TargetsNo targets recorded. Patient Instructions Encounter Date Encounter Id Patient Instructions Last Modified By Organization Details Last Modified Time 04/23/2017 [id number] I discussed with patient the importance of achieving an ideal body weight by adhering to an [place] [employer] (AHA) Heart Healthy diet. Discussion also included lipid goals of an HDL greater than 40 (male) / 50 (female) and an LDL less than 100; ideally an LDL goal of less than 70 in patients with diabetes and heart disease. I have counseled patient to take medication(s) as directed. Patient has been directed to the patient portal for the AHA Heart Healthy diet if & as needed. If not improved, I may recommend that patient be referred to a proof technician helper for additional care management support. Patient agrees that goals of taking medication(s) appropriately and following the approved diet are appropriate and attainable. I have reviewed and discussed treatment goals with patient. Treatment goals {{have* have not}} been met. I therefore recommend {{follow current treatment plan* change of diet change of medication change of medication and diet}}. I have discussed with patient the need to maintain a blood pressure goal of <140/90. I have counseled patient to take recommended medication(s) as directed, follow an approved low-sodium diet, and monitor blood pressure daily at home. I have also discussed the importance of regular exercise. Patient will do home monitoring and will record blood pressures using the tool provided in the patient portal. Patient has been directed to the patient portal for a low sodium diet. If not improved, I may recommend that patient be referred to a dietitian for additional care management support. Patient agrees that the goals of taking medication(s) as directed and following the appropriate diet are appropriate and attainable. I have reviewed and discussed treatment goals with patient. The treatment goals {{have* have not}} been met. I therefore recommend {{follow current treatment plan* change of diet change of medication change of medication and diet}}. [email or web address] Not available 04/23/2017 15:55:54 10/20/2017 [id number] I discussed with patient the importance of achieving an ideal body weight by adhering to an [place] [employer] (AHA) Heart Healthy diet. Discussion also included lipid goals of an HDL greater than 40 (male) / 50 (female) and an LDL less than 100; ideally an LDL goal of less than 70 in patients with diabetes and heart disease. I have counseled patient to take medication(s) as directed. Patient has been directed to the patient portal for the AHA Heart Healthy diet if & as needed. If not improved, I may recommend that patient be referred to a proof technician helper for additional care management support. Patient agrees that goals of taking medication(s) appropriately and following the approved diet are appropriate and attainable. I have reviewed and discussed treatment goals with patient. Treatment goals {{have have not*}} been met. I therefore recommend {{follow current treatment plan///resume crestor # follow current treatment plan change of diet change of medication change of medication and diet}}. I have discussed with patient the need to maintain a blood pressure goal of <140/90. I have counseled patient to take recommended medication(s) as directed, follow an approved low-sodium diet, and monitor blood pressure daily at home. I have also discussed the importance of regular exercise. Patient will do home monitoring and will record blood pressures using the tool provided in the patient portal. Patient has been directed to the patient portal for a low sodium diet. If not improved, I may recommend that patient be referred to a dietitian for additional care management support. Patient agrees that the goals of taking medication(s) as directed and following the appropriate diet are appropriate and attainable. I have reviewed and discussed treatment goals with patient. The treatment goals {{have* have not}} been met. I therefore recommend {{follow current treatment plan* change of diet change of medication change of medication and diet}}. [email or web address] Not available 10/20/2017 10:59:26 11/29/2017 [id number] will slowly stop symbicort and see if continues to need [email or web address] Not available 11/29/2017 09:12:25 11/11/2018 [id number] I have discussed with patient the need to maintain a blood pressure goal of <140/90. I have counseled patient to take recommended medication(s) as directed, follow an approved low-sodium diet, and monitor blood pressure daily at home. I have also discussed the importance of regular exercise. Patient will do home monitoring and will record blood pressures using the tool provided in the patient portal. Patient has been directed to the patient portal for a low sodium diet. If not improved, I may recommend that patient be referred to a dietitian for additional care management support. Patient agrees that the goals of taking medication(s) as directed and following the appropriate diet are appropriate and attainable. I have reviewed and discussed treatment goals with patient. The treatment goals {{have* have not}} been met. I therefore recommend {{follow current treatment plan* change of diet change of medication change of medication and diet}}. I discussed with patient the importance of achieving an ideal body weight by adhering to an [place] [employer] Association (AHA) Heart Healthy diet. Discussion also included lipid goals of an HDL greater than 40 (male) / 50 (female) and an LDL less than 100; ideally an LDL goal of less than 70 in patients with diabetes and heart disease. I have counseled patient to take medication(s) as directed. Patient has been directed to the patient portal for the AHA Heart Healthy diet if & as needed. If not improved, I may recommend that patient be referred to a proof technician helper for additional care management support. Patient agrees that goals of taking medication(s) appropriately and following the approved diet are appropriate and attainable. I have reviewed and discussed treatment goals with patient. Treatment goals {{have have not*}} been met. I therefore recommend {{change of medication////resu me meds # follow current treatment plan change of diet change of medication change of medication and diet}}. [email or web address] Not available 11/11/2018 14:57:19 Reason for Referral None Reported. Results Created Date Observation Date Name Description Value Unit Range Abnormal Flag Note LastModifiedBy Organization Detail LastModifiedTime 09/12/19 18 MRI, shoul dulce maria, w/o contr ast No observ ation record ed. [email or web address] [facility] [address] [place], [address], 09/14/2017 13:48:55 11/16/19 18 11/15/2017 XR, chest XR CHEST PA OR AP AND LATERA L ([facility]) [facility]INIC [facility] HISTOR Y: Dyspne a COMMEN TS: PA and latera l radiog raphs of the chest were perfor med with no previo us studie s availa ble for compar luci. There is mild anteri or wedgin g of a likely number the T11-T1 2 verteb ral bodies with multil evel thorac ic spondy litic change presen t. The cardio medias tinal silhou ette is unrema rkable . There are no focal infilt rates. There is hyperi nflati on. IMPRES IMAN: Hyperi nflati on with no focal infilt rate. There is mild anteri or wedgin g of a likely number the T11-T1 2 verteb ral bodies with multil evel thorac ic spondy litic change presen t. DICTAT ED BY: RADHA LYNCH M.D. Workst ation ID:[id number] Dyspne a [facility] [address] [place] [address], [address], 11/15/2017 12:30:00 11/16/19 18 11/15/2017 XR, chest , 2 view No observ ation record ed. addin [facility] [address] [place], [address], 11/15/2017 13:25:15 01/15/20 24 01/15/2024 CT, abdom en + pelvi s, w/ contr ast No observ ation record ed. [email or web address] [facility] [address] [place], [address], 01/18/2024 10:15:37 01/15/20 24 01/15/2024 XR, chest , 1 view No observ ation record ed. [email or web address] [facility] [address] [place], [address], 01/18/2024 10:16:25 Result Notes None recorded. Problems No Known Problems Procedures Surgical History Date Name Laterality Status Provider Name and Address Organization Details Recorded Time 8 Nebulizer tx completed Radha Singh DO [address], , [address], [place] - [facility] 11/15/2017 09:18:26 1 Eye surgery completed Ashley Plump [place] [facility] 05/21/2014 08:00:46 5 Ear Tube Placement completed Ashley Plump [place] [facility] 05/21/2014 08:00:46 4 Ear Tube Placement completed Ashley Plump [place] [facility] 05/21/2014 08:00:46 0 Sinus Surgery completed Ashley Plump [place] [facility] 05/21/2014 08:00:46 9 Sinus Surgery completed Ashley Plump [place] [facility] 05/21/2014 08:00:46 1 Eye surgery completed Ashley Plump [place] [facility] 05/21/2014 08:00:46 6 Eye surgery completed Ashley Plump [place] [facility] 05/21/2014 08:00:46 Imaging Results Imaging Date Name Status LastModified by Organiz ation Details LastModified Time 09/11/2017 MRI, shoulder, w/o contrast completed [email or web address] [place], [place] [address] [address] [place], [address], 09/14/2017 13:48:55 11/15/2017 XR, chest completed [facility] [address] [place], [address], 11/15/2017 12:30:00 11/15/2017 XR, chest, 2 view completed [facility] [address] [place], [address], 11/15/2017 13:25:15 01/15/2024 CT, abdomen + pelvis, w/ contrast completed [email or web address] [facility] [address] [place], [address], 01/18/2024 10:15:37 01/15/2024 XR, chest, 1 view completed [facility] [address] [place], [address], 01/18/2024 10:16:25 Procedure Notes None recorded. Medical Equipment None Reported. Allergies No known drug allergies Medications Name Sig Start Date Stop Date Status Note LastModified by Organization Details LastModified Time doxycycline hyclate 100 mg capsule 10/20 completed Not Available Not Available Not Available azithromyci n 250 mg tablet TAKE 2 TABLETS (500 MG) BY ORAL ROUTE ONCE DAILY FOR 1 DAY THEN 1 TABLET (250 MG) BY ORAL ROUTE ONCE DAILY FOR 4 DAYS 11/11 completed Not Available Not Available Not Available hydrocodone 5 mg-acetamin ophen 325 mg tablet 10/20 completed Not Available Not Available Not Available prednisone 20 mg tablet 10/14 completed Not Available Not Available Not Available Prilosec 20 mg capsule,del ayed release Take 1 capsule every day by oral route for 30 days. 10/20 completed Not Available Not Available Not Available bisoprolol 5 mg-hydrochl orothiazide 6.25 mg tablet TAKE 1 TABLET BY MOUTH EVERY DAY 02/01 completed Not Available Not Available Not Available sulfamethox azole 800 mg-trimetho prim 160 mg tablet 10/20 completed Not Available Not Available Not Available bisoprolol 2.5 mg-hydrochl orothiazide 6.25 mg tablet TK 1 T PO QD active Not Available Not Available No t Available tramadol 50 mg tablet 10/20 completed Not Available Not Available Not Available ketorolac 10 mg tablet active Not Available Not Available Not Available Promethazin e VC-Codeine 6.25 mg-5 mg-10 mg/5 mL oral syrup 10/20 completed Not Available Not Available Not Available DuoNeb 0.5 mg-3 mg(2.5 mg base)/3 mL solution for nebulizatio n Inhale 3 millilite rs by nebulizat ion route in office now 2017 active Not Available Not Available Not Avai lable prednisolon e acetate 1 % eye drops,suspe nsion 10/20 completed Not Available Not Available Not Available benzonatate 100 mg capsule 10/20 completed Not Available Not Available Not Available codeine 10 mg-guaifene sin 100 mg/5 mL oral liquid 10/20 completed Not Available Not Available Not Available lisinopril 5 mg tablet Take 1 tablet every day by oral route for 30 days. active Not Available Not Available No t Available cefdinir 300 mg capsule 10/20 completed Not Available Not Available Not Available amoxicillin 875 mg-potassiu m clavulanate 125 mg tablet TAKE 1 TABLET BY MOUTH TWICE A DAY 10/14 completed Not Available Not Available Not Available rosuvastati n 10 mg tablet TK 1 T PO HS active Not Available Not Available No t Available ProAir HFA 90 mcg/actuati on aerosol inhaler USE 2-3 X PER DAY NEEDED active Not Available Not Available No t Available Symbicort 160 mcg-4.5 mcg/actuati on HFA aerosol inhaler INL 2 PFS PO BID active Not Available Not Available No t Available Vitals Date Recorded Body height Body mass index (BMI) Body weight Body temperature Respiratory rate Oxygen saturation Oxygen saturation in Arterial blood by Pulse oximetry Heart rate Systolic blood pressure Diastolic blood pressure Provider Name and Address Organization Details Last Updated DateTime 7 170.815 cm 25.7 kg/m2 96520.1 4 g 97.6 [degF] 15 /min 98 % 98 % 78 /min 118 mm[Hg] 78 mm[Hg] Chitra Dixonantonio [facility] 7 15:48:34 Date Recorded Body height Body mass index (BMI) Body weight Body temperature Heart rate Oxygen saturation Oxygen saturation in Arterial blood by Pulse oximetry Systolic blood pressure Diastolic blood pressure Provider Name and Address Organization Details Last Updated DateTime 8 170.815 cm 25.8 kg/m2 55717.3 3 g 97 [degF] 74 /min 97 % 97 % 122 mm[Hg] 78 mm[Hg] Anaya Hennessy [facility] 8 10:50:10 Date Recorded Body height Body mass index (BMI) Body weight Respiratory rate Oxygen saturation Oxygen saturation in Arterial blood by Pulse oximetry Heart rate Body temperature Systolic blood pressure Diastolic blood pressure Provider Name and Address Organization Details Last Updated DateTime 8 170.815 cm 25.7 kg/m2 83649.7 4 g 14 /min 93 % 93 % 63 /min 97.4 [degF] 118 mm[Hg] 74 mm[Hg] Chitra Eli [facility] 8 08:39:40 Date Recorded Body height Body mass index (BMI) Body weight Respiratory rate Body temperature Oxygen saturation Oxygen saturation in Arterial blood by Pulse oximetry Heart rate Systolic blood pressure Diastolic blood pressure Provider Name and Address Organization Details Last Updated DateTime 8 170.815 cm 25.9 kg/m2 91856.1 3 g 14 /min 96.6 [degF] 98 % 98 % 72 /min 130 mm[Hg] 88 mm[Hg] Margaux Kitchen [facility] 8 09:04:50 Date Recorded Body height Body temperature Heart rate Oxygen saturation Oxygen saturation in Arterial blood by Pulse oximetry Body mass index (BMI) Body weight Systolic blood pressure Diastolic blood pressure Provider Name and Address Organization Details Last Updated DateTime 9 170.815 cm 96.9 [degF] 70 /min 97 % 97 % 25.7 kg/m2 68989.1 4 g 124 mm[Hg] 74 mm[Hg] Monica Pierce [facility] 9 14:37:09 Social History Question Answer Notes LastModified by Organizat ion Details LastModified Time Tobacco Smoking Status Former Smoker Ashley العليraquel fisher [facility] 05/21/2014 08:00:45 Do You Have An Advance Directive? Yes Information n ot available 05/21/2014 How Many Years Have You Consumed Alcohol? 37 [email or web address] Information not available 10/20/2017 What Is Your Level Of Caffeine Consumption? Moderate Information not available 05/21/2014 How Much Tobacco Do You Chew? None Information not available 05/21/2014 Are You Deaf Or Do You Have Serious Difficulty Hearing? No [email or web address] Information not available 10/20/2017 Which Illicit Or Recreational Drugs Have You Used? 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 Information not available 05/21/2014 Advanced Directive Discussed No [email or web address] Information not available 03/03/2016 Date Of Last Dental Exam 02/10/2016 [email or web address] Information not available 10/20/2017 RISK STRATIFICATION SCORE 3: 1-2 Controlled Chronic Conditions [email or web address] Information not available 12/12/2015 Durable Power Of Director Of Occupational Therapy Yes Information not available 05/21/2014 Alcohol Intake 2 Drinks/day Informat ion not available 05/21/2014 DNR/comfort Care No Informat ion not available 05/21/2014 Exercise Level Regular (3x/wk) [email or web address] Information not available 10/20/2017 Marital Status Informatio n not available 05/21/2014 Smoking-Date Quit 1986 Informa tion not available 05/21/2014 Illicit Drugs No Information not available 10/20/2017 Spouse/Significant Other's Name Yara Information not available 05/21/2014 What Was The Date Of Your Most Recent Tobacco Screening? 11/11/2018 Information not available 11/24/2018 How Many Children Do You Have? 3 Information not available 05/21/2014 Do You Use Protection During Sex? No Information not available 05/21/2014 Seat Belts Used Routinely Yes Information not available 05/21/2014 Are You Sexually Active? Yes Information not available 05/21/2014 Number Of Sexual Partners 1 Information not available 05/21/2014 Are You Passively Exposed To Smoke? Yes Information no t available 05/21/2014 How Much Tobacco Do You Smoke? No Information not available 05/21/2014 General Stress Level High Information not available 05/21/2014 How Many Years Have You Smoked Tobacco? 13 Information not available 05/21/2014 Sex: Unknown Functional Status None recorded. Mental Status None recorded. Family History Relationship Description Onset Age of this Age Resolved Age Notes LastModified by Organization Details LastModified Time Mother Malignant tumor of cervix 62 63 [email or web address] Not available 2014 08:00:43 Mother Schizophreni a Not available 10/20 10:45:08 Father Heart disease [email or web address] Not available 10/20 10:45:08 Father Reflux [email or web address] Not available 10/20/2017 10:45:08 Medical History Condition Response Chemical Dependency-Cocaine N Heart Problems - CHF N Coronary Artery Disease N Gout N COPD / Emphysema / Chronic Bronchitis N Vein problems/ Vein Thrombosis N Diabetes (Type I) N Blood Clots N Depression N Pneumonia N Venereal Disease N Frequent Bladder Infections N Congestive Heart Failure N Sinusitis Y Epilepsy / Seizure Disorder N Alcoholism N Anxiety Disorder N Arthritis N Heart Problems - CAD N Infertility N Cancer N Marfan Syndrome N Chemical Dependency-Marijuana N Stroke N Crohn's Disease/Ulcerative Colitis N CANCER OVARIAN N Blood or Plasma Transfusions N Chemical Dependency-Heroin N Arrhythmia N Rheumatoid Arthritis N Chemical Dependency-Narcotics N Fibromyalgia N CKD N Extra or skipped heart beats N HTN N Hospitalizations N Skin Problems/Eczema N ADD or ADHD N Rashes/Lesions N Constipation N Palpitations, increased heart rate N Bleeding Disorder N Blood Diseases/Anemia N Tuberculosis N Heart Attack N Asthma N Allergies Y Back/Neck Injury or Problems N Hyperlipidemia/High Cholesterol N Peripheral Vascular Disease N Prostate Problem N Jaundice N GERD/Reflux N Hepatitis N Neuropathy N Joint Replacement N Pulmonary Embolism N Gall Bladder Disease N Glaucoma N Defects or Inherited Disease N Breast Problem N UTI N Measles N Heart murmur or other heart problem N Congenital Anomalies N History of fainting or dizziness N CANCER UTERINE N Bladder or Kidney Problems N Liver Disease N Organ Transplant N Fractures N Schizophrenia N CANCER CERVICAL N Mumps N Osteoarthritis N Rheumatic fever N Heart Problems - Angina N Change in exercise tolerence N Major Injury or Accidents N Thyroid Problems N GI Problems N Anemia N Nerve or spinal chord injury N Poor Circulation N A Fib N Chickenpox N Psychiatric Illness N Diabetes N Bedwetting N Headaches or Migraines Y Sickle Cell N Diabetes (Type II) N Heart Problems - PAD N Chronic Pain N Insomnia/Trouble Sleeping N Diverticulitis N Dementia N Bipolar Disorder N CANCER BREAST N Sleep Apnea N Heart Disease N Chest pain or SOB with exercise N CANCER COLON N Peptic Ulcer Disease / Gastritis N Osteoporosis N Past Encounters Encounter ID Performer Location Encounter Start Date Encounter Closed Date Diagnosis/Indication Diagnosis SNOMED-CT Code Diagnosis ICD10 Code Diagnosis Note [id number] [address] [address] 05/21/2014 07:56:47 05/21/2014 09:14:29 Essential hypertension 90538494 Gastritis 3622677 Fatigue 46552341 [id number] Perla Harris [address] [address] 07/06/2014 15:42:58 07/06/2014 16:43:26 Essential hypertension 34248612 Screening for malignant neoplasm of colon 044026066 Vitamin D deficiency 15914954 [id number] [address] [address] 01/09/2015 10:39:40 01/09/2015 11:32:01 Essential hypertension 74812192 [id number] [address] [address] 03/11/2015 12:41:27 03/11/2015 13:31:17 Pre-surgery evaluation 477655148 Z01.[id number] [address] 07/24/2015 08:58:54 07/24/2015 10:04:20 Essential hypertension 37710868 I10 Pure hypercholesterolemia 115040255 E78.0 Screening for cancer 158 16931 Z12.[id number] [address] 03/03/2016 08:32:04 03/03/2016 09:28:00 Benign essential hypertension 4135417 I10 [id number] [address] [address] 02/01/2017 14:28:06 02/01/2017 15:20:22 Benign essential hypertension 6356534 I10 Mixed hyperlipidemia 267 764667 E78.[id number] [address] 04/23/2017 15:43:14 04/23/2017 16:00:28 Mixed hyperlipidemia 175402985 E78.2 Acute maxi llary sinusitis 51469021 J01.00 Benign ess ential hypertension 2286040 I10 [id number] [address] [address] 10/20/2017 10:43:50 10/20/2017 11:01:18 Mixed hyperlipidemia 643749901 E78.2 Benign ess ential hypertension 5573518 I10 Asthma 301693745 J45.90 9 [id number] [facility] [address] [place] [address] 11/15/2017 08:35:19 11/15/2017 09:25:35 Dyspnea at rest 727387028 R06.00 Acute bronchitis 4594792 2 J20.9 [id number] [facility] [address] [place] [address] 11/29/2017 08:39:50 11/29/2017 09:20:13 Asthmatic bronchitis 195749233 J45.[id number] [address] 11/11/2018 14:30:56 11/11/2018 14:58:38 Benign essential hypertension 6610252 I10 Mixed hyperlipidemia 267 495029 E78.2 Asthma 171202553 J45.90 9 Screening for malignant neoplasm of prostate 523887448 Z12.5 Health Concerns Section Related Observation LastModified by Organization Detai ls LastModified Time None Recorded Concern Status LastModified by Organization Details LastModified Time None Recorded Advance Directives Directive Y: Payers Encounter Date Sequence Insurance Name Policy Number Policy Gal[place] Covered Member ID Galvan Member ID Guarantor Name 04/23/2017 1 [facility] CHO[facility] [id number] Umesh Nathan [id number] Umesh Nathan 10/20/2017 1 [facility] CHO[facility] [id number] Umesh Nathan [id number] Umesh Nathan 11/15/2017 1 [facility] CHO[facility] [employer]US [id number] Umesh Nathan [id number] Umesh Nathan 11/29/2017 1 [facility] - CHOICE PLUS [id number] Umesh Nathan [id number] Umesh Nathan 11/11/2018 1 [employer] [id number] Umesh Nathan [id number] Umesh Nathan Notes Date Note Type Note Provider Name and Address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
--- NOTE | 2024-08-04 17:27 | WPDSIXMINUTE ---
Six Minute Walk Procedure Procedure Performed Pulmonary Stress Test (6 min walk) Six Minute Walk Six Minute Walk: This is a 6 minute walk test. The test was performed and interpreted in accordance with the 2014 ERS/ATS task force guidelines. Findings: The patient's resting room air oxygen saturation measured by pulse oximetry was 99%, the heart rate was 78 bpm, and the modified Frankie dyspnea score was 0. Patient ambulated for 366 meters and oxygen saturation remained 95 to 99%. At the end of the study the heart rate was 94 bpm and the modified Frankie dyspnea score was 0.5. The patient did not qualify for supplemental oxygen at rest or with ambulation. There are no prior studies for comparison.
== END 2024-08-04 08:40 | disposition home or self-care (01) ==
PROVIDERS: Visit Provider Internal Medicine
DX: J44.9 Chronic obstructive pulmonary disease, unspecified (principal)
CPT/HCPCS: 94618